=== PATIENT | female | born 1940 | race Caucasian/White ===

== ENCOUNTER → 2017-10-29 08:34 | Outpatient (CLI) | payer MEDICARE, SELFPAY ==
--- NOTE | 2017-10-29 09:00 | MM_ITS ---
MM Dig screening mamm BI w/CAD ORDERING PHYSICIAN : Tony Bhatti MD PATIENT: 77 years GENDER: Female COMPARISON: February 2008, February 2013 digital mammograms.: Also September 2005 film screen study INDICATION: ITS.REASON: SCREENING density female hormones. No complaints. No surgery. Family history: maternal grandmother and aunt with breast cancer. TECHNIQUE: Standard CC and MLO images were obtained. R2 CAD reviewed. FINDINGS: Moderate breast density bilaterally. Mild/ Moderate residual fibroglandular elements but there has been There is been progressive decreased density in the breasts bilaterally with compared to the previous studies from February 2008,. There is a more similar appearance when compared to 2012 but still with slight regression of fibroglandular elements. No dominant mass nor suspicious calcifications. Benign vascular calcifications are seen bilaterally. RIGHT BREAST:. No new areas of concern. A few scattered small benign appearing calcifications lateral right breast can be followed. LEFT BREAST:Stable left breast. No new findings. Small slightly nodular area of density at the lateral breast on cc view is unchanged 2012. Can be followed. Stable scant densities on MLO view as well can be followed IMPRESSION: No new findings of significant concern. Moderate breast density for age reflects hormone replacement therapy Bilateral follow-up in one year recommended BI-RADS Category: 2 Benign Finding(s) RECOMMENDED FOLLOW-UP: 1YR 1 YEAR FOLLOW-UP (A letter has been sent to the patient regarding results of the study.)
--- NOTE | 2017-10-29 09:30 | XR_ITS ---
XR DEXA axial skeleton HISTORY: ITS.REASON: OSTEOPENIA ORDERING PHYSICIAN: Tony Bhatti MD PATIENT AGE: 77 years COMPARISON: 02/17/2013 FINDINGS: The BMD measured at the left hip is 0.787 g/cm squared with a T score of -1.8. This is considered osteopenia according to the World Health Organization criteria. Fracture risk is moderate. Treatment is advised. L1-L4 density has a T score of 0.2. Spine density has increased by 2%. The left hip density has decreased by nearly 1%. IMPRESSION: Osteopenia with moderate fracture risk. Suggest treatment with follow-up exam October 2019
== END ==
PROVIDERS: Family Provider Family Medicine; PCP Family Medicine; Visit Provider Family Medicine
DX: Z12.31 Encounter for screening mammogram for malignant neoplasm of breast (principal); M85.89 Other specified disorders of bone density and structure, multiple sites
CPT/HCPCS: 77067; 77080

== ENCOUNTER → 2019-10-31 09:09 | Outpatient (CLI) | payer MEDICARE, SELFPAY ==
--- NOTE | 2019-10-31 09:14 | XR_ITS ---
PROCEDURE: XR DEXA AXIAL SKELETON CLINICAL HISTORY: OSTEOPENIA COMPARISON: CR DEXAAX XR DEXA axial skeleton from 10/29/2017 FINDINGS: The left forearm BMD is 0.636 with a t-score of -1.0. The left hip BMD is 0.672 with a t-score of -1.6. The lumbar spine BMD is 1.074 with a t-score of 0.2. Previously the lowest BMD was at the left hip at the femoral neck with a T-score of -1.8 IMPRESSION: This patient is considered osteopenic according to the World Health Organization criteria. Bone density is between 10 and 25 percent below young normal . Fracture risk is moderate. Treatment is advised. Based on these results of follow-up exam is recommended in 2 years Dictated by: Mateo Kelly MD 11/01/2019 09:03 Mateo Kelly MD in [place] 11/01/2019 09:03
--- NOTE | 2019-10-31 09:15 | MM_ITS ---
PROCEDURE: MM DIG SCREENING MAMM BI W/CAD Digital Breast Tomosynthesis Included CLINICAL INDICATION: SCREENING There is a history of breast cancer patient's maternal grandmother and maternal aunt. Patient currently is on estrogen. Patient has multiple moles on each breast too many to jenny all COMPARISON: MG MAMM-SCREENING DIRECT DIGITAL from 02/23/2008 MG DMSB DIG MAMM-SCREEN ELLIE from 02/17/2013 MG SCBI MM Dig screening mamm BI w/CAD from 10/29/2017 TECHNIQUE: Standard CC and MLO images and 3D Tomosynthesis was obtained. R2 CAD reviewed. FINDINGS: Prominent diffuse somewhat heterogenic fibroglandular densities are seen throughout both breasts and the findings are fairly symmetrical bilaterally. There is prominent arterial calcification in each breast. There are scattered benign-appearing microcalcifications in each breast. There are couple of mole markers on each breast. There is no new or suspicious lesion in either breast and no suspicious microcalcifications. IMPRESSION: Moderate breast density with no suspicious lesions seen BI-RAD Category: 2 Benign Finding(s) FOLLOW-UP: 1YR 1 Year Follow-up (A letter has been sent to the patient regarding results of the study.) Dictated by: Dr. Lito Delaney MD 11/02/2019 07:30 Dr. Lito Delaney MD in [place] 11/02/2019 07:30
== END ==
PROVIDERS: PCP Family Medicine; Visit Provider Family Medicine
DX: Z12.31 Encounter for screening mammogram for malignant neoplasm of breast (principal); M85.89 Other specified disorders of bone density and structure, multiple sites
CPT/HCPCS: 77063; 77067; 77080

== ENCOUNTER → 2020-01-03 10:42 | Outpatient (CLI) | payer MEDICARE, SELFPAY | PROVIDERS: PCP Family Medicine; Visit Provider Family Medicine | DX: Z03.818 Encounter for observation for suspected exposure to other biological agents ruled out (principal) | CPT/HCPCS: U0003 ==

== ENCOUNTER → 2020-07-05 10:29 | Outpatient (POV) | payer MEDICARE, SELFPAY | PROVIDERS: Visit Provider Audiologist | DX: Z00.00 Encounter for general adult medical examination without abnormal findings (principal) ==

== ENCOUNTER → 2020-09-07 09:21 | Outpatient (CLI) | payer MEDICARE, SELFPAY ==
[2020-09-07 09:26] LABS: Microscopic, Urine URINE MICROSCOPIC (MICROSCOPIC)
[2020-09-07 09:49] LABS: Basophils # 0.1 K/mm3 (0-0.2); Basophils % 0.9 % (0.1-2.0); Eosinophils # 0.9 K/mm3 (0.0-0.4); Hematocrit 34.8 % (37.0-47.0); Hemoglobin 11.5 g/dL (12.2-16.2); Lymphocytes # 1.7 K/mm3 (0.7-4.5); Lymphocytes % 19.8 % (10-50); Mean Corpuscular HGB Conc 33.1 g/dL (31.8-35.4); Mean Corpuscular Hemoglobin 30.2 pg (27.0-31.2); Mean Corpuscular Volume 91.2 fl (81-99); Mean Platelet Volume 9.2 fl (7.4-10.4); Monocytes # 0.4 K/mm3 (0.1-1.0); Monocytes % 4.7 % (1.7-9.3); Neutrophils # 5.6 K/mm3 (1.8-7.8); Neutrophils % 64.6 % (37.0-80.0); Platelet Count 203 K/mm3 (142-424); Red Blood Count 3.81 M/mm3 (4.20-5.40); Red Cell Distribution Width 13.4 % (11.5-17.5); White Blood Count 8.7 K/mm3 (4.8-10.8)
[2020-09-07 09:55] LABS: Creatinine,Urine Random 215 mg/dL (Not Estab.)
[2020-09-07 09:56] LABS: Appearance,Urine SL CLOUDY (Clear); Bilirubin,Urine Negative (Negative); Blood, Urine Negative (Negative); Color,Urine DK YELLOW (Yellow); Glucose,Urine (UA) Negative (Negative); Ketones,Urine Negative (Negative); Leukocyte Esterase,Urine Negative (Negative); Nitrate,Urine Negative (Negative); Protein,Urine Negative (Negative); Urobilinogen,Urine 0.2 EU/dl (0.2)
[2020-09-07 10:06] LABS: WBC,Urine Occasional #/hpf (0-3)
[2020-09-07 10:07] LABS: Bacteria,Urine Trace /lpf
[2020-09-07 10:09] LABS: Albumin Level 3.8 g/dl (3.5-5.0); Anion Gap 11.3 mEq/L (5-15); Blood Urea Nitrogen 19 mg/dl (7-17); Calcium 8.8 mg/dl (8.4-10.2); Carbon Dioxide 27 mmol/L (22.0-30.0); Chloride 103 mmol/L (98-107); Estimated Glomerular Filt Rate 43 ml/min (>60); GFR (African American) 52 ML/MIN (>60); Glucose 113 mg/dl (74-100); Phosphorous 3.6 mg/dl (2.5-4.5); Potassium 4.3 mmoL/L (3.5-5.1); Sodium 137 mmol/L (136-145)
[2020-09-07 10:20] LABS: Intact Parathyroid Hormone 48.4 pg/mL (7.5-53.5)
[2020-09-07 10:26] LABS: 25-OH Vitamin D, Total 67.5 ng/mL (30-100)
== END ==
PROVIDERS: Visit Provider Internal Medicine Nephrology
DX: N18.30 Chronic kidney disease, stage 3 unspecified (principal); E55.9 Vitamin D deficiency, unspecified
CPT/HCPCS: 36415; 80069; 81001; 82306; 82570; 83970; 84155; 85025

== ENCOUNTER → 2020-09-13 13:43 | Outpatient (POV) | payer MEDICARE, SELFPAY | PROVIDERS: Visit Provider Internal Medicine Nephrology | DX: Z00.00 Encounter for general adult medical examination without abnormal findings (principal) ==

== ENCOUNTER → 2021-03-19 11:10 | Outpatient (POV) | payer MEDICARE, SELFPAY | PROVIDERS: Visit Provider Dermatology | DX: Z00.00 Encounter for general adult medical examination without abnormal findings (principal) ==

== ENCOUNTER → 2021-04-15 10:38 | Outpatient (CLI) | payer MEDICARE, SELFPAY ==
[2021-04-15 10:50] LABS: Microscopic, Urine URINE MICROSCOPIC (MICROSCOPIC)
[2021-04-15 11:29] LABS: Hematocrit 37.1 % (37.0-47.0); Hemoglobin 11.7 g/dL (12.2-16.2); Mean Corpuscular HGB Conc 31.6 g/dL (31.8-35.4); Mean Corpuscular Hemoglobin 30.6 pg (27.0-31.2); Platelet Count 234 K/mm3 (142-424); Red Blood Count 3.82 M/mm3 (4.20-5.40); Red Cell Distribution Width 12.7 % (11.5-17.5); White Blood Count 10.3 K/mm3 (4.8-10.8)
[2021-04-15 11:47] LABS: Chloride 103 mmol/L (98-107)
[2021-04-15 11:48] LABS: Albumin Level 4.1 g/dl (3.5-5.0); Potassium 4.2 mmoL/L (3.5-5.1); Sodium 138 mmol/L (136-145)
[2021-04-15 11:50] LABS: Blood Urea Nitrogen 22 mg/dl (7-17); Estimated Glomerular Filt Rate 43 ml/min (>60); GFR (African American) 52 ML/MIN (>60)
[2021-04-15 11:51] LABS: Anion Gap 11.2 mEq/L (5-15); Calcium 9.2 mg/dl (8.4-10.2); Carbon Dioxide 28 mmol/L (22.0-30.0); Glucose 83 mg/dl (74-100); Phosphorous 4.1 mg/dl (2.5-4.5)
[2021-04-15 13:51] LABS: Appearance,Urine CLEAR (Clear); Bilirubin,Urine Negative (Negative); Blood, Urine Negative (Negative); Color,Urine YELLOW (Yellow); Glucose,Urine (UA) Negative (Negative); Ketones,Urine Negative (Negative); Leukocyte Esterase,Urine Negative (Negative); Nitrate,Urine Negative (Negative); PH,Urine 6.5 (5.0-8.5); Protein,Urine Negative (Negative); Urobilinogen,Urine 0.2 EU/dl (0.2)
[2021-04-15 14:00] LABS: Bacteria,Urine Trace /lpf; RBC,Urine Occasional #/hpf (0-3); WBC,Urine Occasional #/hpf (0-3)
[2021-04-15 19:40] LABS: Creatinine,Urine Random 148 mg/dL (Not Estab.); Total Protein,Urine Random < 5.0 mg/dL (0.0-12.0)
== END ==
PROVIDERS: PCP Family Medicine; Visit Provider Internal Medicine Nephrology
DX: N18.30 Chronic kidney disease, stage 3 unspecified (principal)
CPT/HCPCS: 36415; 80069; 81001; 82570; 84155; 85014; 85018; 85048; 85049

== ENCOUNTER → 2021-08-19 11:48 | Outpatient (CLI) | payer MEDICARE, SELFPAY ==
--- NOTE | 2021-08-19 11:54 | XR_ITS ---
FINAL REPORT CLINICAL HISTORY: ACUTE PAIN OF RIGHT SHOULDER. STRAIN OF RIGHT ROTATOR CUFF FINDINGS: RIGHT SHOULDER Two views demonstrate no acute fracture or dislocation. There is mild acromioclavicular and mild glenohumeral joint degenerative change. The visualized bony structures are well aligned. No soft tissue abnormality is seen. IMPRESSION: Degenerative change with no acute process. Reviewed, Interpreted and Dictated by Saqib Cantu III, MD Transcribed by Martha Cano Authenticated and . [facility]
== END ==
PROVIDERS: PCP Family Medicine; Visit Provider Family Medicine
DX: M25.511 Pain in right shoulder (principal); S46.011A Strain of muscle(s) and tendon(s) of the rotator cuff of right shoulder, initial encounter
CPT/HCPCS: 73030

== ENCOUNTER → 2021-10-15 09:55 | Outpatient (POV) | payer MEDICARE, SELFPAY | PROVIDERS: Visit Provider Dermatology | DX: Z00.00 Encounter for general adult medical examination without abnormal findings (principal) ==

== ENCOUNTER 2021-11-15 14:00 | Outpatient (RCR) | payer MEDICARE, SELFPAY ==
--- NOTE | 2021-09-19 09:04 | HMH.OTOPEV ---
OT Inpatient Evaluation Rehab OT Outpatient Eval Start: 09/19/21 08:50 Freq: Status: Active Protocol: Document 09/19/21 08:51 ROSABERNADINE (Rec: 09/19/21 09:04 VITALIY [id number]) Electronically Signed By Shira Nelson OT 09/19/21 08:51 Outpatient Therapy Subjective History Subjective History 81 year old female referred to skilled OP OT services for R shoulder pain. Patient had a recent fall back in June of 2021 after tripping up her stairs on the back porch and landing on her R shoulder. On 08/19/21, X-ray showed degenerative changes with no acute process. PCP provided steriods to ease the pain then referred patient to ortho. On 09/06/21, Patient received Kenalog and lidocaine HCI with pain improvements still today . However Patient continues to have pain in the R shoulder during AROM and exhibit weakness. 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 Chief Complaint Pain,Weakness Symptom Type Ache Symptoms Relieved By Ice,Prescription Meds Symptoms Aggravated By Physical Activity Prior Functional Limitations None Current Functional Limitations Reaching,Lifting,Recreation Activity Symptom Description Intermittent Level of pain today (0-10) 0 Pain scale - at its best (0-10) 0 Pain scale - at its worst (0-10) 3 Shoulder/Elbow Eval Shoulder Objective Measurements Shoulder ROM Right Shoulder Abduction Active Range of 140 Motion (degrees) Shoulder Flexion Active Range of Motion 160 (degrees) Query Text: Shoulder External Rotation Active Range 70 of Motion (degrees) Shoulder Internal Rotation Active Range 30 of Motion (degrees) pain with active ROM shoulder exam right standard Shoulder MMT Shoulder Abduction Strength Grade 3- Fair- Shoulder Extension Strength Grade 3- Fair- Shoulder Flexion Strength Grade 3- Fair- Shoulder Horizontal Abduction Strength 3- Fair- Grade Infraspinatus/Teres Minor Strength Grade 3- Fair- Shoulder External Rotation Strength 3- Fair- Grade Shoulder Internal Rotation Strength 3- Fair-
== END 2021-11-15 14:05 | disposition home or self-care (01) ==
LOC: OT 14:00
PROVIDERS: PCP Family Medicine; Visit Provider Orthopaedic Surgery
DX: M25.511 Pain in right shoulder (principal)
CPT/HCPCS: 97010; 97014; 97035; 97110; 97140; 97164; 97165; 97530; G0283

== ENCOUNTER → 2021-12-24 15:10 | Outpatient (POV) | payer MEDICARE, SELFPAY | PROVIDERS: Visit Provider Dermatology | DX: Z00.00 Encounter for general adult medical examination without abnormal findings (principal) ==

== ENCOUNTER → 2022-01-28 14:25 | Outpatient (POV) | payer MEDICARE, SELFPAY | PROVIDERS: Visit Provider Dermatology | DX: Z00.00 Encounter for general adult medical examination without abnormal findings (principal) ==

== ENCOUNTER → 2022-02-04 14:49 | Outpatient (POV) | payer MEDICARE, SELFPAY | PROVIDERS: Visit Provider Dermatology | DX: Z00.00 Encounter for general adult medical examination without abnormal findings (principal) ==

== ENCOUNTER → 2022-04-11 10:26 | Outpatient (CLI) | payer MEDICARE, SELFPAY ==
[2022-04-11 11:04] LABS: Microscopic, Urine URINE MICROSCOPIC (MICROSCOPIC)
--- NOTE | 2022-04-11 11:14 | XR_ITS ---
FINAL REPORT TECHNIQUE: 5 views CLINICAL HISTORY: BACK PAIN right sided lower back pain FINDINGS: There is no fracture present. There is no malalignment. There is moderate, diffuse degenerative disc disease, most pronounced at L2-3. There is mild facet arthropathy. IMPRESSION: Moderate degenerative change without acute bony abnormality. Reviewed, Interpreted and Dictated by Sayda Connelly MD Transcribed by Autumn Felix Authenticated and [facility]
[2022-04-11 11:28] LABS: Hematocrit 39.3 % (37.0-47.0); Hemoglobin 12.6 g/dL (12.2-16.2); Mean Corpuscular HGB Conc 32.1 g/dL (31.8-35.4); Mean Corpuscular Hemoglobin 31.2 pg (27.0-31.2); Mean Corpuscular Volume 97.5 fl (81-99); Platelet Count 339 K/mm3 (142-424); Red Blood Count 4.03 M/mm3 (4.20-5.40); Red Cell Distribution Width 12.9 % (11.5-17.5); White Blood Count 12.8 K/mm3 (4.8-10.8)
[2022-04-11 11:34] LABS: Appearance,Urine CLEAR (Clear); Bilirubin,Urine Negative (Negative); Blood, Urine Negative (Negative); Color,Urine YELLOW (Yellow); Glucose,Urine (UA) Negative (Negative); Ketones,Urine Negative (Negative); Leukocyte Esterase,Urine Negative (Negative); Nitrate,Urine Negative (Negative); Protein,Urine Negative (Negative); Specific Gravity, Urine 1.015 (1.005-1.030); Urobilinogen,Urine 0.2 EU/dl (0.2)
[2022-04-11 12:01] LABS: Creatinine,Urine Random 110 mg/dL (Not Estab.)
[2022-04-11 12:03] LABS: Squamous Epithelial Cell,Urine Occasional #/hpf (0-5); WBC,Urine Occasional #/hpf (0-3)
[2022-04-11 12:39] LABS: Albumin Level 3.7 g/dl (3.5-5.0); Anion Gap 8.9 mEq/L (5-15); Blood Urea Nitrogen 26 mg/dl (7-17); Calcium 9.1 mg/dl (8.4-10.2); Carbon Dioxide 33 mmol/L (22.0-30.0); Chloride 100 mmol/L (98-107); Estimated Glomerular Filt Rate 36 ml/min (>60); GFR (African American) 44 ML/MIN (>60); Glucose 111 mg/dl (74-100); Phosphorous 4.4 mg/dl (2.5-4.5); Potassium 4.9 mmoL/L (3.5-5.1); Sodium 137 mmol/L (136-145)
[2022-04-11 12:49] LABS: Intact Parathyroid Hormone 35.7 pg/mL (7.5-53.5)
[2022-04-11 12:53] LABS: 25-OH Vitamin D, Total 67.3 ng/mL (30-100)
== END ==
PROVIDERS: PCP Family Medicine; Visit Provider Internal Medicine Nephrology
DX: N18.31 Chronic kidney disease, stage 3a (principal); E83.9 Disorder of mineral metabolism, unspecified; M89.9 Disorder of bone, unspecified; M85.80 Other specified disorders of bone density and structure, unspecified site
CPT/HCPCS: 36415; 72110; 80069; 81001; 82306; 82570; 83970; 84155; 85014; 85018; 85048; 85049

== ENCOUNTER → 2022-04-17 12:32 | Outpatient (POV) | payer MEDICARE, SELFPAY | PROVIDERS: Visit Provider Internal Medicine Nephrology | DX: Z00.00 Encounter for general adult medical examination without abnormal findings (principal) ==

== ENCOUNTER → 2022-04-28 09:41 | Outpatient (CLI) | payer MEDICARE, SELFPAY ==
--- NOTE | 2022-04-28 09:46 | MR_ITS ---
FINAL REPORT TECHNIQUE: Multiplanar and multisequence imaging of the lumbar spine was obtained without contrast. CLINICAL HISTORY: ACUTE RIGHT SIDED LOW BACK PAIN. RIGHT LEG PAIN, NUMBNESS, AND TINGLING. NO INJURY OR TRAUMA. SYMPTOMS [id number]. FINDINGS: There is normal alignment of the lumbar vertebral bodies. Vertebral body height is preserved. The spinal cord ends at the level of L1. There is normal signal intensity within the substance of the distal spinal cord. Bone marrow signal intensity is normal. No acute paraspinal abnormality is identified. L1-2: There is no focal disc herniation, central canal stenosis or neuroforaminal narrowing. L2-3: Annular disc bulge is present bilateral facet osteoarthropathy. There is mild central canal stenosis and left greater than right neuroforaminal narrowing. L3-4: Annular disc bulge is present, asymmetric to the left with mild facet osteoarthropathy. There is no central canal stenosis. There is mild left neuroforaminal narrowing. L4-5: There is a right paracentral extrusion. Disc material a sense along the posterior aspect of the L4 vertebral body. There is moderate to severe central canal stenosis asymmetric to the right. Disc material likely contacts the right L5 nerve root and right L4 nerve root. There is severe right and mild left neuroforaminal narrowing. L5-S1: There is no focal disc herniation, central canal stenosis. There is bilateral facet osteoarthritis apathy with right greater than left mild neuroforaminal narrowing. IMPRESSION: 1. Right paracentral extrusion at L4-5 which likely contacts both the right L4 and right L5 nerve roots. 2. Degenerative disease at the additional levels as detailed. Reviewed, Interpreted and Dictated by Cheyenne Wood MD Transcribed by Basia Zarate Authenticated and [facility]
== END ==
PROVIDERS: PCP Family Medicine; Visit Provider Family Medicine
DX: M54.50 Low back pain, unspecified (principal); M51.9 Unspecified thoracic, thoracolumbar and lumbosacral intervertebral disc disorder; M47.816 Spondylosis without myelopathy or radiculopathy, lumbar region
CPT/HCPCS: 72148; 76376

== ENCOUNTER → 2022-05-19 14:21 | Outpatient (POV) | payer MEDICARE, SELFPAY ==
[2022-05-19 14:28] VITALS: BP 130/69; PULSE 93; RESP 19; O2SAT 97; BMI 27.4
--- NOTE | 2022-05-19 15:05 | EXP.PAIN.OV ---
HPI Data of Consult Patient: new to practice Consult date: 05/19/22 Requesting Physician: Marina Aleman APRN Primary Care Provider: Tony Bhatti MD Consult Narrative Reason for consult: Low back pain, right leg pain History of present illness: Ms. Nichole is a 81 year old female who presents today as a new patient. She is a referral from Dr. Bhatti's office. Today she rates her pain a 0 out of 10. Patient states that in March she bent down and had a sharp shooting pain in her low back that radiated down her right leg. Patient states this went on for approximately 6 weeks and cause significant pain. Patient states she was unable to tolerate prolonged activity such as standing or walking due to the pain. She stated that she had frequent trouble doing activities of daily living such as cooking and cleaning due to the worsening pain symptoms. Patient was prescribed gabapentin 100 mg twice a day and tramadol 50 mg as needed. Patient states that this did help improve her symptoms. She does state that she also uses Tylenol as needed. Patient cannot tolerate NSAIDs due to a interaction with another medication she takes on a regular basis. Patient does use heat and ice to provide additional relief as well as still continuing to go to physical therapy. She does state that they have been doing a lot of traction activities which have seemed to help. She does state that she feels like her gait has changed following this episode. 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 Patient does have a history of shoulder injections by Dr. Ruano. She does state this provides significant improvement of her symptoms. 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 Her Diogenes is [phone]. Its been reviewed and appropriate. CC: Marina Aleman APRN [facility] Disclaimer: The information contained in this section may have been updated after the patient was seen, as this information can be updated by other users. Medical History (Updated 05/19/22 @ 15:07 by Marina Aleman APRN) Arthritis HLD (hyperlipidemia) HTN (hypertension) Surgical History (Updated 05/19/22 @ 14:51 by Meghan Mansfield RN) H/O tubal ligation History of total right hip replacement Social History (Updated 05/19/22 @ 14:52 by Meghan Mansfield RN) Smoking Status: Never smoker alcohol intake: never current occupational status: employed Travel in the last 8 weeks: None Review of Systems Review of Systems Review of systems:: pertinent systems reviewed and negative unless documented below Review of systems (narrative): Review of Systems: General: No recent weight changes, no fever, no sleep disturbances Respiratory: No cough, no shortness of air, no recurring pulmonary infections Cardiovascular/peripheral vascular: No chest pain, no palpitations, no edema, no shortness of breath Gastrointestinal: No new onset incontinence, normal bowel movements reported Genitourinary: No new onset incontinence Musculoskeletal: Low back pain, right leg pain Psychiatric: [Normal mood/affect] Neurological: [Denies weakness in extremities], [denies balance issues] Meds Home Medications and Allergies Home Medications Medication Instructions Recorded Confirmed Type alendronate 35 mg tablet mg PO 04/21/19 04/25/22 History aspirin 81 mg tablet,delayed 81 mg PO DAILY 04/21/19 04/25/22 History release (Adult Aspirin Regimen) estradiol 1 mg tablet 1 mg PO 04/21/19 04/25/22 History medroxyprogesterone 2.5 mg tablet 2.5 mg PO 04/21/19 04/25/22 History metoprolol succinate 50 mg PO 04/21/19 04/25/22 History tablet,extended release 24 hr rosuvastatin 40 mg tablet 40 mg PO 04/21/19 04/25/22 History irbesartan 300 mg tablet 300 mg PO DAILY 09/06/21 04/25/22 History New Prescriptions to Start Prescriptions: Allergies Allergy/AdvReac Type Eloisa
== END ==
PROVIDERS: PCP Family Medicine; Visit Provider Nurse Practitioner Family
DX: M51.16 Intervertebral disc disorders with radiculopathy, lumbar region (principal); M79.604 Pain in right leg; M48.061 Spinal stenosis, lumbar region without neurogenic claudication; M47.26 Other spondylosis with radiculopathy, lumbar region
CPT/HCPCS: 99202; G0463

== ENCOUNTER 2022-05-29 09:00 | Outpatient (RCR) | payer MEDICARE, SELFPAY ==
--- NOTE | 2022-05-08 14:19 | HMH.PTOPEV ---
PT Outpatient Evaluation Rehab PT Outpatient Evaluation Start: 05/08/22 13:30 Freq: Status: Active Protocol: Document 05/08/22 13:30 CARIE (Rec: 05/08/22 14:19 CARIE [id number]) E-signed By Xiang Gonzales, PT Outpatient Therapy Subjective History Subjective History Pt reports mechanical LBP since bending injury on while doing laundry at home . Pt reports LBP progressed a couple days after the incident with right LE radicular s/s from hip to ankle with pain, tightness, and weakness. Pt reports current medicine regimen prevents all LBP and RLE pain, however, reports right ankle (DF) and R LE weakness continues. MRI scheduled for 05/13/22. Chief Complaint Pain,Stiff,Paresthesia, Weakness Symptom Type Ache,Throb,Dull,Stabbing Symptoms Relieved By Rest/Positioning,Prescription Meds Symptoms Aggravated By Bending/Stooping,Physical Activity,Walking,Lifting Prior Functional Limitations None Current Functional Limitations Lifting,Housework,Standing, Walking,Bending/Stooping Symptom Description Intermittent Level of pain today (0-10) 0 Pain scale - at its best (0-10) 0 Pain scale - at its worst (0-10) 8 Lumbopelvic Eval Posture Thoracic Spine Posture Standing Position Neutral Lumbar Spine Posture Standing Position Neutral Assistive device Assistive Devices None / NA Gait Observation General Gait Pattern Observation Ataxic Gait Palapation tenderness right lumbar spinal tenderness Yes: 3/4 paraspinal tenderness Yes: 3/4 buttock tenderness Yes: 3/4 Lumbar/Sacral Palpation Findings Tenderness,Trigger Point, Muscle Guarding Accessory Movement L-spine Vertebrae Accessory Movements Central [employer] [place] that Elicit Symptoms L4 right L5 right Range of Motion Lumbar Spine Active Flexion Range of 0-60 Motion (degrees) Lumbar Spine Active Extension Range of 0-20 Motion (degrees) Left Lumbar Spine Lateral Flexion Active 0-20 Range of Motion (degrees) Right Lumbar Spine Lateral Flexion 0-20 Active Range of Motion (degrees) Lumbar Spine ROM Limitations Pain Manual Muscle Test Left Knee Extension Strength Grade 5 Norm
== END 2022-05-29 09:05 | disposition home or self-care (01) ==
LOC: PT 09:00
PROVIDERS: PCP Family Medicine; Visit Provider Family Medicine
DX: M47.816 Spondylosis without myelopathy or radiculopathy, lumbar region (principal); M51.26 Other intervertebral disc displacement, lumbar region; M51.9 Unspecified thoracic, thoracolumbar and lumbosacral intervertebral disc disorder; M54.41 Lumbago with sciatica, right side
CPT/HCPCS: 97010; 97012; 97014; 97110; 97163; 97530; G0283

== ENCOUNTER → 2022-09-01 13:29 | Outpatient (POV) | payer MEDICARE, SELFPAY ==
--- NOTE | 2022-09-01 14:14 | EXP.PAIN.SOA ---
[facility] Pain Management SOAP Note Subjective:: Patient is a pleasant 82-year-old female who presents today for follow-up. We are currently treating the patient for degenerative disc disease of lumbar spine with lumbar radiculopathy symptoms, low back pain, right leg pain, spinal stenosis lumbar spine. Today she rates her pain a 7 out of 10. Patient states her pain is all in her left shoulder. Patient denies any recent trauma or injury. She states this pain has been going on for years and progressively worsened over time. Patient states she has been seeing Dr. Ruano who is done intra-articular injections at this site along with her right shoulder. Patient states that she still is getting good relief in the right however her last injection in the left only lasted approximately 3 weeks. She also states that Dr. Ruano mention that she may need a shoulder replacement in the upcoming future. Patient states that she is trying to do all she can to postpone surgery at this time. Patient does describe this pain as a constant dull ache that is worse with increased activity. Patient states it does interfere with her ability perform activities of daily living such as cooking and cleaning and she has very limited range of motion with difficulty raising her shoulder. She does state that in the past she had been given gabapentin 100 mg twice a day and tramadol 50 mg as needed and she does still have a little of this medication. Patient does state that she has altered kidney function and was diagnosed with stage III kidney disease for the last 3 years. She states it has maintained at this level and not had any progression at this time. Patient does use heat and ice and is also seeing physical therapy. Patient does still work at [employer] a couple of days through the week. Her Diogenes is [phone]. Its been reviewed and appropriate. Review of Systems: General: No recent weight changes, no fever, no sleep disturbances Respiratory: No cough, no shortness of air, no recurring pulmonary infections Cardiovascular/peripheral vascular: No chest pain, no palpitations, no edema, no shortness of breath Gastrointestinal: No new onset incontinence, normal bowel movements reported Genitourinary: No new onset incontinence Musculoskeletal: Left shoulder pain Psychiatric: [Normal mood/affect] Neurological: [Denies weakness in extremities], [denies balance issues] Objective:: Physical Exam: General: Alert and oriented x3, no acute distress, pleasant and cooperative Lungs: Respirations even and unlabored, symmetrical chest expansion Eyes: PERRL Musculoskeletal: Flexion and extension of left shoulder somewhat guarded secondary to pain, Neurological: Speech clear, no gross sensory deficit Assessment:: Degenerative disc disease of lumbar spine with lumbar radiculopathy symptoms, low back pain, right leg pain, spinal stenosis of the lumbar spine, left shoulder pain Plan:: Patient is experiencing worsening pain in her left shoulder with limited range of motion. I have discussed with the patient that she may benefit from a left shoulder suprascapular nerve block. Risk and benefits were discussed with the patient and she would like to proceed forward with this plan of care. I will also order the patient tizanidine 4 mg at bedtime and methocarbamol 500 mg twice daily and provide a 1 month supply of these medications. I have counseled the patient to take the tizanidine at bedtime to help with her sleeping and that the methocarbamol is generally less sedating through the day. Patient will be scheduled for a left shoulder suprascapular nerve block. Patient has been instructed to contact the clinic with any concerns before the next appointment. Dr. Patel has reviewed this note and agrees with this plan of care. This note was dictated using voice recognition software and make contain errors or omissions. [facility] Disclaimer: The information contained in this section may have been updated aft
[2022-09-01 15:44] VITALS: BP 146/76; PULSE 83; RESP 18; O2SAT 97; BMI 26.2
== END | disposition home or self-care (01) ==
PROVIDERS: PCP Family Medicine; Visit Provider Nurse Practitioner Family
DX: M51.16 Intervertebral disc disorders with radiculopathy, lumbar region (principal); M48.061 Spinal stenosis, lumbar region without neurogenic claudication; M79.604 Pain in right leg; M25.512 Pain in left shoulder
CPT/HCPCS: 99212; G0463

== ENCOUNTER 2022-09-09 13:45 | Day surgery (SDC) | payer MEDICARE, SELFPAY ==
[2022-09-09 14:00] VITALS: BP 177/78; PULSE 80; RESP 16; TEMP 36.4; O2SAT 100; BMI 27.4
[2022-09-09 14:27] VITALS: BP 123/78; PULSE 75; RESP 18; O2SAT 97
[2022-09-09 14:29] VITALS: BP 123/78; PULSE 75; RESP 18; O2SAT 98
--- NOTE | 2022-09-09 14:35 | P.PCN_ITS ---
Procedure Date: 09/09/22 Time: 14:35 Anesthesiologist:: Hans Cherry CRNA Complications:: None Pre-procedure Diagnosis:: Chronic left shoulder pain. Degenerative osteoarthritis left shoulder Post-procedure Diagnosis:: Same. Indications for Procedure:: Patient presents to our clinic today 82-year-old female for left suprascapular nerve block. Patient has had multiple left shoulder intra-articular injections of cortisone. Patient states the injections into the shoulder joint have helped in the past. However the last couple she has had did not last very long. Patient complains of chronic left shoulder pain. Difficulty with range of motion due to pain in the shoulder joint. She rates her pain 7/10. Procedure Details:: Details of the procedure explained to the patient. The patient taken the procedure room placed in sitting position. The area over the left scapula was cleansed using chlorhexidine as a cleansing solution. Using a 25-gauge inch and half needle and a solution of 0.25% Marcaine +1% lidocaine and 40 mg of Depo- Medrol 3 separate areas on the superior lateral border of the left scapula was injected. 3 to 4 cc at each area. Patient tolerated the procedure without difficulty. There are no complications. Plan and Disposition:: Patient was discharged without incident.
[2022-09-09 14:46] VITALS: BP 148/74; PULSE 71; RESP 18; O2SAT 99
== END 2022-09-09 14:46 | disposition home or self-care (01) ==
PROVIDERS: PCP Family Medicine; Visit Provider Nurse Anesthetist, Certified Registered
DX: M19.012 Primary osteoarthritis, left shoulder (principal); M25.512 Pain in left shoulder; G89.29 Other chronic pain
CPT/HCPCS: 20610; J1040

== ENCOUNTER → 2022-09-24 14:40 | Outpatient (POV) | payer MEDICARE, SELFPAY ==
--- NOTE | 2022-09-24 14:52 | EXP.PAIN.SOA ---
[facility] Pain Management SOAP Note Subjective:: Patient is a pleasant 82-year-old female who presents today for follow-up of left intra-articular shoulder injection on 09/09/2022. We are currently treating the patient for degenerative disc disease of lumbar spine with lumbar radiculopathy symptoms, low back pain, right leg pain, spinal stenosis lumbar spine. Today she rates her pain a 5 out of 10. She does state that the injection did provide approximately approximately 50% improvement and is still currently helping. She does state that she still has continued pain in that left shoulder and will have trouble with certain range of motion exercises however it is much more tolerable. She states she has been able to increase her activity with decreased pain and does overall know that she is only able to do certain activities. At our last visit we did prescribe her methocarbamol 500 mg twice a day and tizanidine 4 mg at bedtime. She does state that this medication combination did provide significant improvem she does have a history of stage III kidney disease for the last 3 years. Review of Systems: General: No recent weight changes, no fever, no sleep disturbances Respiratory: No cough, no shortness of air, no recurring pulmonary infections Cardiovascular/peripheral vascular: No chest pain, no palpitations, no edema, no shortness of breath Gastrointestinal: No new onset incontinence, normal bowel movements reported Genitourinary: No new onset incontinence Musculoskeletal: Left shoulder pain Psychiatric: [Normal mood/affect] Neurological: [Denies weakness in extremities], [denies balance issues] Objective:: Physical Exam: General: Alert and oriented x3, no acute distress, pleasant and cooperative Lungs: Respirations even and unlabored, symmetrical chest expansion Eyes: PERRL Musculoskeletal: Flexion and extension of left shoulder somewhat guarded secondary to pain, [antalgic gait noted] Neurological: Speech clear, no gross sensory deficit Assessment:: Degenerative disc disease of lumbar spine with lumbar radiculopathy symptoms, low back pain, right leg pain, spinal stenosis of lumbar spine, left shoulder pain Plan:: Patient has had significant improvement of her pain symptoms following her intra-articular shoulder injection along with the muscle relaxers and does not require any additional injective therapy at this time. I will refill the patient's methocarbamol 500 mg twice daily and tizanidine 4 mg at bedtime and provide a 1 month supply of this medication. I will also order compounding cream. Patient will return to clinic in 1 month for reevaluation of symptoms, medication refill and plan of care. Patient has been instructed to contact the clinic with any concerns before the next appointment. Dr. Patel has reviewed this note and agrees with this plan of care. This note was dictated using voice recognition software and make contain errors or omissions. [facility] Disclaimer: The information contained in this section may have been updated after the patient was seen, as this information can be updated by other users. Medical History Arthritis HLD (hyperlipidemia) HTN (hypertension) Surgical History H/O tubal ligation History of total right hip replacement Social History Smoking Status: Never smoker alcohol intake: never current occupational status: retired Travel in the last 8 weeks: None
[2022-09-24 15:11] VITALS: BP 134/63; PULSE 78; RESP 18; O2SAT 96; BMI 28.3
== END | disposition home or self-care (01) ==
PROVIDERS: PCP Family Medicine; Visit Provider Nurse Practitioner Family
DX: M51.16 Intervertebral disc disorders with radiculopathy, lumbar region (principal); M79.604 Pain in right leg; M48.061 Spinal stenosis, lumbar region without neurogenic claudication; M25.512 Pain in left shoulder
CPT/HCPCS: 99212; G0463

== ENCOUNTER → 2022-10-23 08:39 | Outpatient (POV) | payer MEDICARE, SELFPAY ==
[2022-10-23 08:57] VITALS: BP 115/55; PULSE 100; RESP 18; O2SAT 97; BMI 26.5
--- NOTE | 2022-10-23 08:59 | EXP.PAIN.SOA ---
[facility] Pain Management SOAP Note Subjective:: Patient is a pleasant 82-year-old female who presents today for follow-up. We are currently treating the patient for degenerative disc disease of lumbar spine with lumbar radiculopathy symptoms, low back pain, right leg pain, spinal stenosis of lumbar spine, left shoulder pain. Today she rates her pain a 5 out of 10. Patient denies any new trauma or injury. She states she continues to have more shoulder pain. She did previously have a left intra-articular shoulder injection at the end of August that did provide at least 50% improvement lasting over a month however she states over the last couple of weeks it has progressively worsened. Patient does describe it as a aching, nagging sensation that is worse with increased activity. She states it makes it difficult to do activities of daily living such as cooking or cleaning or even simple task of washing her hair. Patient does use her compounding cream and states this helps some along with her methocarbamol 500 mg twice a day and tizanidine 4 mg at bedtime. She does state that that even last night she had difficulty falling asleep with the medication. Her Diogenes is [id number]. Its been reviewed and appropriate. Review of Systems: General: No recent weight changes, no fever, no sleep disturbances Respiratory: No cough, no shortness of air, no recurring pulmonary infections Cardiovascular/peripheral vascular: No chest pain, no palpitations, no edema, no shortness of breath Gastrointestinal: No new onset incontinence, normal bowel movements reported Genitourinary: No new onset incontinence Musculoskeletal: Left shoulder pain Psychiatric: [Normal mood/affect] Neurological: [Denies weakness in extremities], [denies balance issues] Objective:: Physical Exam: General: Alert and oriented x3, no acute distress, pleasant and cooperative Lungs: Respirations even and unlabored, symmetrical chest expansion Eyes: PERRL Musculoskeletal: Flexion and extension of left shoulder somewhat guarded secondary to pain, [antalgic gait noted] Neurological: Speech clear, no gross sensory deficit Assessment:: Degenerative disc disease of lumbar spine with lumbar radiculopathy symptoms, low back pain, right leg pain, spinal stenosis of lumbar spine, left shoulder pain Plan:: Patient is experiencing worsening pain in her left shoulder with limited range of motion. I have discussed with the patient that she may benefit from a repeat left shoulder intra-articular injection. Risk and benefits were discussed with the patient and she would like to proceed forward with this plan of care. I will also order an MRI without contrast of her left shoulder to rule out any possible tear. I will refill the patient's methocarbamol 500 mg twice a day and tizanidine 4 mg at bedtime and provide a 1 month supply of this medication. Patient will be scheduled for a left intra-articular shoulder injection. Patient has been instructed to contact the clinic with any concerns before the next appointment. Dr. Patel has reviewed this note and agrees with this plan of care. This note was dictated using voice recognition software and make contain errors or omissions. [facility] Disclaimer: The information contained in this section may have been updated after the patient was seen, as this information can be updated by other users. Medical History Arthritis HLD (hyperlipidemia) HTN (hypertension) Surgical History H/O tubal ligation History of total right hip replacement Social History Smoking Status: Never smoker alcohol intake: never current occupational status: employed Travel in the last 8 weeks: None
== END | disposition home or self-care (01) ==
PROVIDERS: Visit Provider Nurse Practitioner Family
DX: M51.16 Intervertebral disc disorders with radiculopathy, lumbar region (principal); M48.061 Spinal stenosis, lumbar region without neurogenic claudication; M79.604 Pain in right leg; M25.512 Pain in left shoulder
CPT/HCPCS: 99212; G0463

== ENCOUNTER → 2022-10-27 06:53 | Outpatient (CLI) | payer MEDICARE, SELFPAY ==
--- NOTE | 2022-10-27 07:34 | MR_ITS ---
FINAL REPORT CLINICAL HISTORY: LEFT SHOULDER PAIN. limited rom and weakness in arm. no injury or trauma. COMPARISON: None FINDINGS: Multiplanar MR imaging of the left shoulder was performed without contrast. Diffuse supraspinatus and infraspinatus tendinosis. Partial-tear bursal surface supraspinatus tendon greater than 50% thickness. Probable calcification distal supraspinatus tendon worrisome for calcific tendinitis. The AC joint is intact. No abnormal fluid is seen in the subacromial/subdeltoid bursa. Diffuse labral degeneration. No convincing tear. Partial tear proximal long head biceps tendon. 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 A large glenohumeral joint effusion is seen. Loose body inferior glenohumeral joint measuring 15 mm. There is no evidence of fracture or dislocation. Multiple subchondral cysts in the humeral head. The musculature is intact. No evidence of soft tissue mass. IMPRESSION: Partial tear supraspinatus tendon. Findings worrisome for calcific tendinitis. Tendinosis. Labral degeneration without convincing tear. Large glenohumeral joint effusion. 15 mm loose body inferior glenohumeral joint. Reviewed, Interpreted and Dictated by Saqib Cantu III, MD Transcribed by Martha Cano Authenticated and [facility]
== END ==
PROVIDERS: PCP Family Medicine; Visit Provider Nurse Practitioner Family
DX: M25.512 Pain in left shoulder (principal)
CPT/HCPCS: 73221

== ENCOUNTER 2022-11-04 08:05 | Day surgery (SDC) | payer MEDICARE, SELFPAY ==
[2022-11-04 08:15] VITALS: BP 155/70; PULSE 91; RESP 18; TEMP 36.7; O2SAT 98; BMI 26.5
[2022-11-04 08:57] VITALS: BP 146/84; PULSE 89; RESP 18; O2SAT 97
--- NOTE | 2022-11-04 09:01 | P.PCN_ITS ---
Procedure Date: 11/04/22 Time: 08:40 Anesthesiologist:: Hans Cherry CRNA Complications:: None Pre-procedure Diagnosis:: Arthritis right shoulder. Supraspinatus partial tear left shoulder. Glenohumeral effusion left shoulder. Post-procedure Diagnosis:: Same. Indications for Procedure:: Very pleasant 82-year-old female that comes to clinic today for left intra- articular shoulder injection. I discussed in detail with the patient regarding the injection plus the benefits of physical therapy for the left shoulder supraspinatus tear. Patient agrees. We will set this up for her today. She rates her pain 7/10. Patient has good strength 5/5 in the left arm. However, range of motion is limited secondary to pain in the left shoulder joint. Procedure Details:: Procedure Details: Left shoulder intra-articular injection Informed consent was obtained risk and benefits of the procedure were explained to the patient. Patient was taken to the procedure room. The left shoulder was prepped using ChloraPrep. A 25-gauge needle was used first anteriorly, laterally, and then posteriorly to inject 10 mL bupivacaine 0.25% and Depo- Medrol 40 mg. Patient tolerated procedure well with no complications. Plan and Disposition:: Patient was discharged without incident
[2022-11-04 09:03] VITALS: BP 146/84; PULSE 89; RESP 18; O2SAT 97
[2022-11-04 09:07] VITALS: BP 150/81; PULSE 80; RESP 18; O2SAT 98
== END 2022-11-04 09:07 | disposition home or self-care (01) ==
PROVIDERS: PCP Family Medicine; Visit Provider Nurse Anesthetist, Certified Registered
DX: S46.012D Strain of muscle(s) and tendon(s) of the rotator cuff of left shoulder, subsequent encounter; M25.412 Effusion, left shoulder
CPT/HCPCS: 20610; J1040

== ENCOUNTER → 2022-11-27 10:12 | Outpatient (POV) | payer MEDICARE, SELFPAY ==
--- NOTE | 2022-11-27 11:34 | EXP.PAIN.SOA ---
[facility] Pain Management SOAP Note Subjective:: Patient is a pleasant 82-year-old female who presents today for follow-up of left intra-articular shoulder injection on 11/04/2022. We are currently treating the patient for degenerative disc disease of lumbar spine with lumbar radiculopathy symptoms, low back pain, right leg pain, spinal stenosis of lumbar spine, left shoulder pain. Today she rates her pain an 8 out of 10. Patient denies any new trauma or injury. She states she had at least 50% improvement following this injection and it is still continuing to provide additional relief longer than her first injection. Patient does state that she has been going to physical therapy and and having increased pain in her left upper arm. Patient does state that it still radiates down and at the visit with the physical therapist they were suggesting that she see orthopedics. Patient does state that she has no interest in having surgery at this time. Patient is currently managed with compounding cream, methocarbamol 500 mg twice a day and tizanidine 4 mg at bedtime. Patient denies any side effects from these medications. She does state that these medications do help manage her pain symptoms. Her Diogenes is [id number]. Its been reviewed and appropriate. Review of Systems: General: No recent weight changes, no fever, no sleep disturbances Respiratory: No cough, no shortness of air, no recurring pulmonary infections Cardiovascular/peripheral vascular: No chest pain, no palpitations, no edema, no shortness of breath Gastrointestinal: No new onset incontinence, normal bowel movements reported Genitourinary: No new onset incontinence Musculoskeletal: Left shoulder pain Psychiatric: [Normal mood/affect] Neurological: [Denies weakness in extremities], [denies balance issues] Objective:: Physical Exam: General: Alert and oriented x3, no acute distress, pleasant and cooperative Lungs: Respirations even and unlabored, symmetrical chest expansion Eyes: PERRL Musculoskeletal: Flexion and extension of left shoulder somewhat guarded secondary to pain, [antalgic gait noted] Neurological: Speech clear, no gross sensory deficit FINAL REPORT CLINICAL HISTORY: LEFT SHOULDER PAIN. limited rom and weakness in arm. no injury or trauma. COMPARISON: None FINDINGS: Multiplanar MR imaging of the left shoulder was performed without contrast. Diffuse supraspinatus and infraspinatus tendinosis. Partial-tear bursal surface supraspinatus tendon greater than 50% thickness. Probable calcification distal supraspinatus tendon worrisome for calcific tendinitis. The AC joint is intact. No abnormal fluid is seen in the subacromial/subdeltoid bursa. Diffuse labral degeneration. No convincing tear. Partial tear proximal long head biceps tendon. 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 A large glenohumeral joint effusion is seen. Loose body inferior glenohumeral joint measuring 15 mm. There is no evidence of fracture or dislocation. Multiple subchondral cysts in the humeral head. The musculature is intact. No evidence of soft tissue mass. IMPRESSION: Partial tear supraspinatus tendon. Findings worrisome for calcific tendinitis. Tendinosis. Labral degeneration without convincing tear. Large glenohumeral joint effusion. 15 mm loose body inferior glenohumeral joint. Reviewed, Interpreted and Dictated by Saqib Cantu III, MD Transcribed by Martha Cano Assessment:: Degenerative disc disease of lumbar spine with lumbar radiculopathy symptoms, low back pain, right leg pain, spinal stenosis of lumbar spine, left shoulder pain Plan:: Patient continues to experience pain in her left shoulder with limited range of motion. I will send a referral to orthopedic Dr. Shaggy Fuller for evaluation. We will send on her shoulder MRI. I will refill the patient's methocarbamol 500 mg twice a day and tizanidine 4 mg at bedtime and provide a 3-krystle
[2022-11-27 12:15] VITALS: BP 158/70; PULSE 83; RESP 18; O2SAT 97; BMI 26.5
== END | disposition home or self-care (01) ==
PROVIDERS: PCP Family Medicine; Visit Provider Nurse Practitioner Family
DX: M51.16 Intervertebral disc disorders with radiculopathy, lumbar region (principal); M79.604 Pain in right leg; M48.061 Spinal stenosis, lumbar region without neurogenic claudication; M25.512 Pain in left shoulder
CPT/HCPCS: 99212; G0463

== ENCOUNTER 2022-12-15 08:00 | Outpatient (RCR) | payer MEDICARE, SELFPAY ==
--- NOTE | 2022-11-06 10:51 | HMH.PTOPEV ---
PT Outpatient Evaluation Rehab PT Outpatient Evaluation Start: 11/06/22 07:40 Freq: Status: Active Protocol: Document 11/06/22 07:42 TREE (Rec: 11/06/22 10:50 TREE [id number]) E-signed By Marina Lewis, PT Outpatient Therapy Subjective History Subjective History Pt is an 82 y/o female who reports insidious onset of L shoulder pain since last fall. Pt reports gradual worsening of pain so she saw Dr. Ruano and received multiple injections in the shoulder. Pt reports the injections helped initially but started to wear off so she was referred to pain management. Pt reports she has received 2 rounds of 3 injections at pain management with the last one performed on Thursday. Pt reports before the most recent injection she was hardly able to move the left shoulder but she is able to lift it to shoulder height now. Pt reports she is also taking Methocarbam 500 mg and Tizanidine 4mg and using a compound cream. Pt reporst she took a pain pill this morning . Pt had a left shoulder MRI performed at [facility] on 10/27/22 Partial tear supraspinatus tendon. Findings worrisome for calcific tendinitis. Tendinosis. Labral degeneration without convincing tear. Large glenohumeral joint effusion. 15 mm loose body inferior glenohumeral joint. Partial tear proximal long head biceps tendon. 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 Pt reports she was told she was not a candidate for surgery and was referred to PT. Pt reports she continues to have pain/ difficulty w
--- NOTE | 2022-12-04 10:10 | HMH.RHREAS ---
Rehab Reassessment Rehab OP Re-assessment Start: 11/06/22 07:40 Freq: Status: Active Protocol: Document 12/04/22 07:55 TREE (Rec: 12/04/22 10:09 TREE [id number]) E-signed By Marina Lewis PT Rehab Re-assessment Subjective Subjective Pt reports she felt like she was improving a little until last session. Pt reports she had a catching sensation upon lowering the arm while performing supine AAROM flexion with a dowel resulting in sharp pain of the front of the shoulder. Pt reports since then she has been getting intermittent sharp, shooting pains in the front of the shoulder rated 10/10. Pt reports this is brief in nature and only lasts a few minutes. Pt reports she is waiting on pain management to refer her to an orthopedic doctor at this time. Objective Objective Notes L shoulder TTP: 3/4 at greater tuberosity, proximal bicep tendon, midshaft of the humrus L shoulder AROM in supine: flex 140, abd 90, ER at 45 degrees 55, IR at 45 degrees 70 (pain at end range elevation and ER with catching sensation upon lowering) L shoulder PROM in supine: flex 160, abd 120 then onset of pain, noted crepitus throughout the motion L shoulder MMT: flexion 4-/5, abd 4-/5, ER 4/5, IR 4/5 Assessment Progress Assessment Slower Than Expected Assessment Notes Pt has attended 7 PT visits consisting of shoulder P/AAROM exercises, gentle isometric shoulder strengthening, scapular strengthening, manual therapy and modalities with fair-good tolerance. Pt demonstrates slightly improved flexion and ER AROM in supine since the initial evaluation. St
== END 2022-12-15 08:05 | disposition home or self-care (01) ==
LOC: PT 08:00
PROVIDERS: PCP Family Medicine; Visit Provider Nurse Practitioner Family
DX: M25.512 Pain in left shoulder (principal)
CPT/HCPCS: 97010; 97014; 97035; 97110; 97140; 97163; 97164; G0283

== ENCOUNTER 2023-04-27 12:53 | Outpatient (POV) | payer MEDICARE, SELFPAY ==
[2023-04-27 13:47] LABS: Microscopic, Urine URINE MICROSCOPIC (MICROSCOPIC)
[2023-04-27 14:26] LABS: Basophils % 0.4 % (0.1-2.0); Eosinophils # 0.5 K/mm3 (0.0-0.4); Eosinophils % 4.6 % (0.1-12.0); Hematocrit 37.5 % (37.0-47.0); Hemoglobin 12.1 g/dL (12.2-16.2); Lymphocytes # 2.3 K/mm3 (0.7-4.5); Lymphocytes % 23.3 % (10-50); Mean Corpuscular HGB Conc 32.3 g/dL (31.8-35.4); Mean Corpuscular Volume 95.9 fl (81-99); Mean Platelet Volume 9.6 fl (7.4-10.4); Monocytes # 0.5 K/mm3 (0.1-1.0); Monocytes % 5.2 % (1.7-9.3); Neutrophils # 6.7 K/mm3 (1.8-7.8); Neutrophils % 66.4 % (37.0-80.0); Platelet Count 219 K/mm3 (142-424); Red Blood Count 3.91 M/mm3 (4.20-5.40); Red Cell Distribution Width 13.6 % (11.5-17.5)
[2023-04-27 14:40] LABS: Appearance,Urine CLEAR (Clear); Bilirubin,Urine Negative (Negative); Blood, Urine Negative (Negative); Color,Urine YELLOW (Yellow); Glucose,Urine (UA) Negative (Negative); Ketones,Urine Negative (Negative); Leukocyte Esterase,Urine Negative (Negative); Nitrate,Urine Negative (Negative); Protein,Urine Negative (Negative); Urobilinogen,Urine 0.2 EU/dl (0.2)
[2023-04-27 14:43] LABS: Albumin Level 4.1 g/dl (3.5-5.0); Anion Gap 9.4 mEq/L (5-15); Blood Urea Nitrogen 22 mg/dl (7-17); Calcium 9.5 mg/dl (8.4-10.2); Carbon Dioxide 28 mmol/L (22.0-30.0); Chloride 105 mmol/L (98-107); Estimated Glomerular Filt Rate 47 ml/min (>60); GFR (African American) 57 ML/MIN (>60); Glucose 92 mg/dl (74-100); Phosphorous 4.2 mg/dl (2.5-4.5); Potassium 4.4 mmoL/L (3.5-5.1); Sodium 138 mmol/L (136-145)
[2023-04-27 14:56] LABS: Intact Parathyroid Hormone 3.6 pg/mL (7.5-53.5)
[2023-04-27 15:02] LABS: 25-OH Vitamin D, Total 57.8 ng/mL (30-100)
[2023-04-27 15:11] LABS: Bacteria,Urine 1+ /lpf
[2023-04-27 16:59] LABS: Total Protein,Urine Random < 5.0 mg/dL (0.0-12.0)
[2023-04-27 17:05] LABS: Creatinine,Urine Random 173 mg/dL (Not Estab.)
== END 2023-04-27 23:59 ==
PROVIDERS: PCP Family Medicine; Visit Provider Internal Medicine Nephrology
DX: N18.31 Chronic kidney disease, stage 3a (principal); D64.9 Anemia, unspecified
CPT/HCPCS: 36415; 80069; 81001; 82306; 82570; 83970; 84155; 85025

== ENCOUNTER 2023-05-12 16:04 | Outpatient (POV) | payer MEDICARE, SELFPAY | END 2023-05-12 23:59 | disposition home or self-care (01) | LOC: SC 16:04 | PROVIDERS: PCP Family Medicine; Visit Provider Dermatology | DX: Z00.00 Encounter for general adult medical examination without abnormal findings (principal) ==

== ENCOUNTER 2023-07-02 14:18 | Outpatient (POV) | payer MEDICARE, SELFPAY ==
[2023-07-02 14:33] VITALS: BP 140/70; PULSE 65; RESP 18; O2SAT 98; BMI 26.6
--- NOTE | 2023-07-02 15:07 | A.OFFVIS_ITS ---
[facility] Pain Management SOAP Note Subjective:: Patient is a pleasant 83-year-old female who presents today for follow-up. Today she rates her pain a 3-out of 10 however she states the pain will go much higher with increased activity. Patient does state that the pain is all in her left shoulder related to arthritis and a tear. Patient does state that she has been seeing an orthopedic provider there at who has done some additional intra-articular injections that have given some improvement but typically last only about a month. Patient does state that they did talk like that she needed a total shoulder replacement however she is trying to postpone this as long as possible. Patient does state that the pain is affecting her sleeping and that frequently she tosses and turns and it is affecting her overall pain. Patient does state the pain interferes with her ability perform activities of daily living such as cooking and cleaning. Patient was previously prescribed from our office compounded cream, methocarbamol 500 mg twice a day and tizanidine 4 mg at bedtime. Patient states that she really did not notice the most benefit between the compounded cream and the tizanidine to help her sleep and relax. Patient would like refills on this if any way possible. Her Diogenes has been reviewed and is appropriate. Review of Systems: General: No recent weight changes, no fever, no sleep disturbances Respiratory: No cough, no shortness of air, no recurring pulmonary infections Cardiovascular/peripheral vascular: No chest pain, no palpitations, no edema, no shortness of breath Gastrointestinal: No new onset incontinence, normal bowel movements reported Genitourinary: No new onset incontinence Musculoskeletal: Left shoulder pain Psychiatric: [Normal mood/affect] Neurological: [Denies weakness in extremities], [denies balance issues] Objective:: Physical Exam: General: Alert and oriented x3, no acute distress, pleasant and cooperative Lungs: Respirations even and unlabored, symmetrical chest expansion Eyes: PERRL Musculoskeletal: Flexion and extension of left shoulder somewhat guarded secondary to pain, [antalgic gait noted] Neurological: Speech clear, no gross sensory deficit Assessment:: Degenerative disc disease of lumbar spine with lumbar radiculopathy symptoms, left shoulder pain Plan:: Patient is experiencing significant pain in her left shoulder with limited range of motion. I have discussed with patient that she may benefit from a suprascapular nerve block. Risk and benefits were discussed with patient and she would like to proceed forward with this plan of care. I will also send a 3- month supply of her tizanidine 4 mg at bedtime. Patient will be scheduled for a suprascapular nerve block left-sided. Patient has been instructed to contact the clinic with any concerns before the next appointment. Dr. Patel has reviewed this note and agrees with this plan of care. This note was dictated using voice recognition software and make contain errors or omissions. [facility] Disclaimer: The information contained in this section may have been updated after the patient was seen, as this information can be updated by other users. Medical History Arthritis HLD (hyperlipidemia) HTN (hypertension) Surgical History H/O tubal ligation History of total right hip replacement Family History Other No significant family history Social History Smoking Status: Never smoker alcohol intake: never current occupational status: other Travel in the last 8 weeks: None
== END 2023-07-02 23:59 | disposition home or self-care (01) ==
PROVIDERS: PCP Family Medicine; Visit Provider Nurse Practitioner Family
DX: M51.16 Intervertebral disc disorders with radiculopathy, lumbar region (principal); M25.512 Pain in left shoulder
CPT/HCPCS: 99212; G0463

== ENCOUNTER 2023-07-14 12:44 | Day surgery (SDC) | payer MEDICARE, SELFPAY ==
[2023-07-14 13:05] VITALS: BP 157/65; PULSE 57; RESP 18; TEMP 36.8; O2SAT 99; BMI 27.4
[2023-07-14 13:11] VITALS: BP 190/80; PULSE 61; RESP 18; O2SAT 98
[2023-07-14] MEDS: BUPIVACAINE 0.25% 10ML INJ 25 MG IJ (13:13)
[2023-07-14] MEDS: LIDOCAINE 1% 5ML PF VIAL 5 ML (13:13)
[2023-07-14] MEDS: methylPREDNISolone ACETATE 80MG/ML VIAL 80 MG (13:13)
--- NOTE | 2023-07-14 13:13 | EXP.PAIN.PRO ---
Procedure Date: 07/14/23 Time: 13:10 Anesthesiologist:: Hans Cherry CRNA Complications:: None Pre-procedure Diagnosis:: Chronic left shoulder pain. DJD left shoulder. Post-procedure Diagnosis:: Same. Indications for Procedure:: Patient is a very pleasant 83-year-old female comes our clinic today for a left suprascapular nerve block. Patient has exhausted intra-articular injections in terms of relief of her left shoulder pain. Patient has 5/5 strength in the left arm. However, limited range of motion secondary to left shoulder pain. She rates her pain 5/10. Procedure Details:: Details of the procedure were explained to the patient. The patient was taken to the procedure room placed in the sitting position. The area over the left superior border of the scapula was cleaned using chlorhexidine's cleansing solution. Using a 25-gauge needle the left superior lateral margin of the scapula was accessed with ease. After negative aspiration 8 cc of a solution containing 0.25% Marcaine +1% lidocaine and 40 mg of Depo-Medrol was injected. Patient tolerated procedure without difficulty. There are no complications. Plan and Disposition:: Patient was reevaluated 10 minutes post procedure. She reports 90% improvement terms of her overall left shoulder pain. Range of motion is improved significantly. She was discharged without incident.
[2023-07-14 13:20] VITALS: BP 186/86; PULSE 63; RESP 18; O2SAT 99
== END 2023-07-14 13:20 | disposition home or self-care (01) ==
PROVIDERS: PCP Family Medicine; Visit Provider Nurse Anesthetist, Certified Registered
DX: M19.012 Primary osteoarthritis, left shoulder (principal); M25.512 Pain in left shoulder; G89.29 Other chronic pain
CPT/HCPCS: 64418; J1010

== ENCOUNTER 2023-07-27 15:14 | Outpatient (POV) | payer MEDICARE, SELFPAY ==
[2023-07-27 15:40] VITALS: BP 155/74; PULSE 61; RESP 18; O2SAT 98; BMI 26.9
--- NOTE | 2023-07-27 16:02 | A.OFFVIS_ITS ---
[facility] Pain Management SOAP Note Subjective:: Patient is a pleasant 83-year-old female who presents today for follow-up of left suprascapular nerve block on 07/14/2023. Today she rates her pain a 2 out of 10. Patient states she has had at least 50% improvement following this injection. Patient does state she has been able to sleep better and move around easier with overall decreased pain. She does state that certain activities still cause pain so she is mindful of that however she is doing much better. Patient is prescribed compounded cream and tizanidine at bedtime. She denies any side effects from this medication. Her Diogenes has been reviewed and is appropriate. Review of Systems: General: No recent weight changes, no fever, no sleep disturbances Respiratory: No cough, no shortness of air, no recurring pulmonary infections Cardiovascular/peripheral vascular: No chest pain, no palpitations, no edema, no shortness of breath Gastrointestinal: No new onset incontinence, normal bowel movements reported Genitourinary: No new onset incontinence Musculoskeletal: Low back pain Psychiatric: [Normal mood/affect] Neurological: [Denies weakness in extremities], [denies balance issues] Objective:: Physical Exam: General: Alert and oriented x3, no acute distress, pleasant and cooperative Lungs: Respirations even and unlabored, symmetrical chest expansion Eyes: PERRL Musculoskeletal: Flexion and extension of lumbar [spine] somewhat guarded secondary to pain, [antalgic gait noted] Neurological: Speech clear, no gross sensory deficit Assessment:: Degenerative disc disease of lumbar spine with lumbar radiculopathy symptoms, left shoulder pain Plan:: Patient has had significant improvement following her injection and does not require any additional injection therapy at this time. Patient will return to clinic in 1 month for reevaluation of symptoms and plan of care. Patient has been instructed to contact the clinic with any concerns before the next appointment. Dr. Ptael has reviewed this note and agrees with this plan of care. This note was dictated using voice recognition software and make contain errors or omissions. [facility] Disclaimer: The information contained in this section may have been updated after the patient was seen, as this information can be updated by other users. Medical History Arthritis HLD (hyperlipidemia) HTN (hypertension) Surgical History H/O tubal ligation History of total right hip replacement Family History Other No significant family history Social History Smoking Status: Never smoker alcohol intake: never current occupational status: retired Travel in the last 8 weeks: None
== END 2023-07-27 23:59 | disposition home or self-care (01) ==
LOC: SC.PAIN 15:15
PROVIDERS: PCP Family Medicine; Visit Provider Nurse Practitioner Family
DX: M51.16 Intervertebral disc disorders with radiculopathy, lumbar region (principal); M25.512 Pain in left shoulder
CPT/HCPCS: 99212; G0463

== ENCOUNTER 2023-08-13 10:42 | Outpatient (CLI) | payer MEDICARE, SELFPAY ==
[2023-08-13 10:53] LABS: Microscopic, Urine URINE MICROSCOPIC (MICROSCOPIC)
[2023-08-13 11:27] LABS: Basophils # 0.1 K/mm3 (0-0.2); Basophils % 0.8 % (0.1-2.0); Eosinophils # 0.3 K/mm3 (0.0-0.4); Eosinophils % 3.7 % (0.1-12.0); Hematocrit 36.6 % (37.0-47.0); Hemoglobin 11.7 g/dL (12.2-16.2); Lymphocytes % 24.1 % (10-50); Mean Corpuscular Hemoglobin 31.5 pg (27.0-31.2); Mean Corpuscular Volume 98.3 fl (81-99); Mean Platelet Volume 9.2 fl (7.4-10.4); Monocytes # 0.5 K/mm3 (0.1-1.0); Monocytes % 5.5 % (1.7-9.3); Neutrophils # 5.5 K/mm3 (1.8-7.8); Neutrophils % 65.9 % (37.0-80.0); Platelet Count 202 K/mm3 (142-424); Red Blood Count 3.72 M/mm3 (4.20-5.40); Red Cell Distribution Width 13.8 % (11.5-17.5); White Blood Count 8.3 K/mm3 (4.8-10.8)
[2023-08-13 11:54] LABS: Alanine Aminotransferase 29 U/L (12-78); Albumin Level 3.7 g/dl (3.5-5.0); Albumin/Globulin Ratio 1.5 (1.1-1.8); Alkaline Phosphatase 59 U/L (38-126); Anion Gap 11.3 mEq/L (5-15); Aspartate Amino Transferase 38 U/L (14-36); Bilirubin,Total 0.8 mg/dl (0.2-1.3); Blood Urea Nitrogen 23 mg/dl (7-17); Calcium 9.1 mg/dl (8.4-10.2); Carbon Dioxide 29 mmol/L (22.0-30.0); Chloride 102 mmol/L (98-107); Chol/HDL Ratio 1.7 (1-3.5); Cholesterol 102 mg/dl (140-200); Estimated Glomerular Filt Rate 43 ml/min (>60); GFR (African American) 52 ML/MIN (>60); Globulin 2.4 g/dL (1.3-3.2); Glucose 100 mg/dl (74-100); HDL Cholesterol 60 mg/dl (40-60); Magnesium 1.9 mg/dl (1.6-2.3); Phosphorous 4.2 mg/dl (2.5-4.5); Potassium 4.3 mmoL/L (3.5-5.1); Sodium 138 mmol/L (136-145); Total Protein,Serum 6.1 g/dl (6.3-8.2); Triglycerides 190 mg/dl (30-150); Uric Acid 4.5 mg/dl (2.5-6.2); VLDL Cholesterol 38 mg/dL (0-40)
[2023-08-13 11:57] LABS: Albumin Level 3.7 g/dl (3.5-5.0); Anion Gap 11.3 mEq/L (5-15); Blood Urea Nitrogen 23 mg/dl (7-17); Calcium 9.2 mg/dl (8.4-10.2); Carbon Dioxide 29 mmol/L (22.0-30.0); Chloride 102 mmol/L (98-107); Estimated Glomerular Filt Rate 43 ml/min (>60); GFR (African American) 52 ML/MIN (>60); Glucose 99 mg/dl (74-100); Phosphorous 4.1 mg/dl (2.5-4.5); Potassium 4.3 mmoL/L (3.5-5.1); Sodium 138 mmol/L (136-145)
[2023-08-13 12:07] LABS: Direct LDL Cholesterol < 30.00 mg/dL (100-129)
[2023-08-13 15:30] LABS: Total Protein,Urine Random < 5.0 mg/dL (0.0-12.0)
[2023-08-13 15:30] LABS: Creatinine,Urine Random 151 mg/dL (Not Estab.)
[2023-08-13 15:31] LABS: Creatinine,Urine Random 152 mg/dL (Not Estab.)
[2023-08-13 15:36] LABS: Appearance,Urine CLEAR (Clear); Bilirubin,Urine Negative (Negative); Blood, Urine Negative (Negative); Color,Urine YELLOW (Yellow); Glucose,Urine (UA) Negative (Negative); Ketones,Urine Negative (Negative); Leukocyte Esterase,Urine Negative (Negative); Nitrate,Urine Negative (Negative); Protein,Urine Negative (Negative); Specific Gravity, Urine 1.015 (1.005-1.030); Urobilinogen,Urine 0.2 EU/dl (0.2)
[2023-08-13 15:38] LABS: Microalbumin < 6.000 mg/L (0-16.7)
[2023-08-13 16:42] LABS: Bacteria,Urine Trace /lpf
== END 2023-08-13 23:59 | disposition home or self-care (01) ==
LOC: LAB 10:43
PROVIDERS: PCP Family Medicine; Visit Provider Internal Medicine Nephrology
DX: N18.31 Chronic kidney disease, stage 3a (principal); E78.00 Pure hypercholesterolemia, unspecified; I10 Essential (primary) hypertension; N18.32 Chronic kidney disease, stage 3b; R25.2 Cramp and spasm
CPT/HCPCS: 36415; 80053; 80061; 80069; 81001; 82043; 82570; 83498; 83735; 84100; 84156; 84550; 85025

== ENCOUNTER 2023-08-17 12:51 | Outpatient (POV) | payer MEDICARE, SELFPAY | END 2023-08-17 23:59 | disposition home or self-care (01) | LOC: SC 12:51 | PROVIDERS: Visit Provider Internal Medicine Nephrology | DX: Z00.00 Encounter for general adult medical examination without abnormal findings (principal) ==

== ENCOUNTER 2023-09-03 08:58 | Outpatient (POV) | payer MEDICARE, SELFPAY ==
--- NOTE | 2023-09-03 09:19 | A.OFFVIS_ITS ---
[facility] Pain Management SOAP Note Subjective:: Patient is a pleasant 83-year-old female who presents today for 1 month follow- up. Today she rates her pain a 7 out of 10. Patient denies any new trauma or injury. Patient does state that she is starting to have worsening pain in her left shoulder. She describes this as an aching, throbbing sensation that does limit her mobility and affects her ability to perform activities of daily living such as cooking and cleaning. Patient did previously have her last suprascapular nerve block in June that did provide 50% improvement or more and lasted up until about the last week. Patient does state that during that time that it works well she had improved function and would like to see about having this repeated. Patient is prescribed tizanidine 4 mg at bedtime and compounded cream. Her Diogenes has been reviewed and is appropriate. Review of Systems: General: No recent weight changes, no fever, no sleep disturbances Respiratory: No cough, no shortness of air, no recurring pulmonary infections Cardiovascular/peripheral vascular: No chest pain, no palpitations, no edema, no shortness of breath Gastrointestinal: No new onset incontinence, normal bowel movements reported Genitourinary: No new onset incontinence Musculoskeletal: Left shoulder pain Psychiatric: [Normal mood/affect] Neurological: [Denies weakness in extremities], [denies balance issues] Objective:: Physical Exam: General: Alert and oriented x3, no acute distress, pleasant and cooperative Lungs: Respirations even and unlabored, symmetrical chest expansion Eyes: PERRL Musculoskeletal: Flexion and extension of left shoulder somewhat guarded secondary to pain, [antalgic gait noted] Neurological: Speech clear, no gross sensory deficit Assessment:: Degenerative disc disease of lumbar spine with lumbar radiculopathy symptoms, left shoulder pain Plan:: Patient is experiencing worsening pain in her left shoulder with limited range of motion. Patient has prior had suprascapular nerve block that did provide more than 50% relief lasting nearly 2 months. I have discussed with the patient that she may benefit from repeat shoulder nerve block. Risk and benefits were discussed with patient and she would like to proceed forward with this plan of care. I will also send in a 3-month supply of her tizanidine. Patient will be scheduled for suprascapular nerve block left-sided. Patient has continued at home exercising and stretching between injections with minimal relief. Patient has been instructed to contact the clinic with any concerns before the next appointment. Dr. Patel has reviewed this note and agrees with this plan of care. This note was dictated using voice recognition software and make contain errors or omissions. [facility] Disclaimer: The information contained in this section may have been updated after the patient was seen, as this information can be updated by other users. Medical History Arthritis HLD (hyperlipidemia) HTN (hypertension) Surgical History H/O tubal ligation History of total right hip replacement Family History Other No significant family history Social History Smoking Status: Never smoker alcohol intake: never current occupational status: retired Travel in the last 8 weeks: None
[2023-09-03 09:22] VITALS: BP 121/79; PULSE 68; RESP 16; O2SAT 100; BMI 26.0
== END 2023-09-03 23:59 | disposition home or self-care (01) ==
PROVIDERS: PCP Family Medicine; Visit Provider Nurse Practitioner Family
DX: M51.16 Intervertebral disc disorders with radiculopathy, lumbar region (principal); M25.512 Pain in left shoulder
CPT/HCPCS: 99212; G0463

== ENCOUNTER 2023-09-22 07:36 | Day surgery (SDC) | payer MEDICARE, SELFPAY ==
[2023-09-22 08:19] VITALS: BP 141/81; PULSE 73; RESP 18; TEMP 36.6; O2SAT 99; BMI 26.6
[2023-09-22] MEDS: methylPREDNISolone ACETATE 80MG/ML VIAL 80 MG (08:22)
[2023-09-22 08:23] VITALS: BP 180/62; PULSE 68; RESP 18; O2SAT 98
[2023-09-22] MEDS: BUPIVACAINE 0.25% 10ML INJ 25 MG IJ (08:23)
[2023-09-22] MEDS: LIDOCAINE 1% 5ML PF VIAL 5 ML (08:23)
--- NOTE | 2023-09-22 08:25 | EXP.PAIN.PRO ---
Procedure Date: 09/22/23 Time: 08:20 Anesthesiologist:: Hans Cherry CRNA Complications:: None Pre-procedure Diagnosis:: DJD left shoulder. Chronic left shoulder pain. Post-procedure Diagnosis:: Same. Indications for Procedure:: Patient is a pleasant 83-year-old female comes to clinic today with continued left shoulder pain. Patient has 5/5 strength in the left arm. However limited range of motion of the left shoulder joint due to pain. Patient describes pain as constant, dull, aching. She rates pain 6/10. Patient responded very well to the same suprascapular block in June 2023. She reports 50% improvement or more lasting for 3 to 4 months. Procedure Details:: Details of the procedure were explained to the patient. The patient was taken to the procedure room placed in the sitting position. The area over the left superior border of the scapula was cleaned using chlorhexidine's cleansing solution. Using a 25-gauge needle the left superior lateral margin of the scapula was accessed with ease. After negative aspiration 8 cc of a solution containing 0.25% Marcaine +1% lidocaine and 40 mg of Depo-Medrol was injected. Patient tolerated procedure without difficulty. There are no complications. Plan and Disposition:: Patient was discharged without incident.
[2023-09-22 08:28] VITALS: BP 180/62; PULSE 68; RESP 18; O2SAT 98
[2023-09-22 08:32] VITALS: BP 179/78; PULSE 66; RESP 16; O2SAT 97
== END 2023-09-22 08:32 | disposition home or self-care (01) ==
PROVIDERS: PCP Family Medicine; Visit Provider Nurse Anesthetist, Certified Registered
DX: M25.512 Pain in left shoulder (principal); M17.12 Unilateral primary osteoarthritis, left knee
CPT/HCPCS: 20610; J1010

== ENCOUNTER 2023-09-29 15:58 | Outpatient (POV) | payer MEDICARE, SELFPAY | END 2023-09-29 23:59 | disposition home or self-care (01) | LOC: SC 15:59 | PROVIDERS: PCP Family Medicine; Visit Provider Dermatology | DX: Z00.00 Encounter for general adult medical examination without abnormal findings (principal) ==

== ENCOUNTER 2023-10-08 08:35 | Outpatient (POV) | payer MEDICARE, SELFPAY ==
[2023-10-08 08:53] VITALS: BP 152/78; PULSE 81; RESP 18; O2SAT 98; BMI 26.6
--- NOTE | 2023-10-08 09:12 | EXP.PAIN.SOA ---
[facility] Disclaimer: The information contained in this section may have been updated after the patient was seen, as this information can be updated by other users. Medical History Arthritis HLD (hyperlipidemia) HTN (hypertension) Surgical History H/O tubal ligation History of total right hip replacement Family History Other No significant family history Social History Smoking Status: Never smoker alcohol intake: never current occupational status: retired Travel in the last 8 weeks: None PM Subjective & Objective Subjective Subjective:: Patient is a pleasant 83-year-old female who presents today for follow-up of left suprascapular nerve block on 09/22/2023. Today she rates her pain a 2 out of 10. She states that she has had at least 95% improvement with this injection and feels like it still helping. Patient states that it did take a couple days to kick in however immediately after that. She was able to sleep better and felt more functional. Patient states that she has not even had to take any of her muscle relaxers because of the decreased pain. She is currently prescribed tizanidine 4 mg at night and compounded cream. Her Diogenes has been reviewed and is appropriate. Review of Systems: General: No recent weight changes, no fever, no sleep disturbances Respiratory: No cough, no shortness of air, no recurring pulmonary infections Cardiovascular/peripheral vascular: No chest pain, no palpitations, no edema, no shortness of breath Gastrointestinal: No new onset incontinence, normal bowel movements reported Genitourinary: No new onset incontinence Musculoskeletal: Left shoulder pain Psychiatric: [Normal mood/affect] Neurological: [Denies weakness in extremities], [denies balance issues] Pain at rest (0-10 scale): 2 Objective Objective:: Physical Exam: General: Alert and oriented x3, no acute distress, pleasant and cooperative Lungs: Respirations even and unlabored, symmetrical chest expansion Eyes: PERRL Musculoskeletal: Flexion and extension of left shoulder somewhat guarded secondary to pain, [antalgic gait noted] Neurological: Speech clear, no gross sensory deficit Has patient had previous pain injection?: Yes Percent improvement in pain since last injection: 95% Conservative treatment options previously tried: Home exercise plan Length of treatment: Longer than 6 weeks Meds Home Medications and Allergies Home Medications ?Medication ?Instructions ?Recorded ?Confirmed ?Type alendronate 35 mg tablet 35 mg PO DIRECTED BONE HEALTH 04/21/19 09/22/23 History aspirin 81 mg tablet,delayed 81 mg PO DAILY Blood thinner 04/21/19 09/22/23 History release (Adult Aspirin Regimen) estradiol 1 mg tablet 1 mg PO DIRECTED SUPPLIMENT 04/21/19 09/22/23 History medroxyprogesterone 2.5 mg tablet 2.5 mg PO DIRECTED SUPPLIMENT 04/21/19 09/22/23 History metoprolol succinate 50 mg 50 mg PO DIRECTED BLOOD PRESSURE 04/21/19 09/22/23 History tablet,extended release 24 hr rosuvastatin 40 mg tablet 40 mg PO DAILY Cholesterol 04/21/19 09/22/23 History irbesartan 300 mg tablet 300 mg PO DAILY BLOOD PRESSURE 09/06/21 09/22/23 History gabapentin 100 mg capsule 100 mg PO DIRECTED Pain 05/19/22 09/22/23 History tramadol 50 mg tablet 50 mg PO DIRECTED Pain 05/19/22 09/22/23 History methocarbamol 500 mg tablet 500 mg PO BID PRN muscle pain #60 11/27/22 09/22/23 Rx tabs tizanidine 4 mg tablet (Zanaflex) 4 mg PO HS . #30 tabs 09/03/23 09/22/23 Rx New Prescriptions to Start Prescriptions: Allergies Allergy/AdvReac Type Severity Reaction Status Date / Time celecoxib [From Celebrex] Allergy Intermediate I-RASH Verified 09/22/23 08:20 Sulfa (Sulfonamide Allergy Intermediate I-RASH Verified 09/22/23 08:20 Antibiotics) Assessment and Plan *Assessment and plan (1) Arthritis of both shoulder regions: Status: Acute Category: Medical Code(s): M19.011 - Primary osteoarthritis, right shoulder; M19.012 - Primary osteoarthritis, left shoulder (2) Lumbar radiculopathy: Status: Acute Category: Medical Code(s): M54.16 - Radiculopathy, lumbar region (3) Degenerative disc disease, lumbar: Status: Acute Category: Medical Code(s): M51.36 - Other intervertebral disc degeneration, lumbar region Plan Patient had significant improvement following her injection and does not require any additional injection therapy at this time. Patient will return to clinic in 2 months for reevaluation of symptoms and plan of care. Patient has been instructed to contact the clinic with any concerns before the next appointment. Dr. Patel has reviewed this note and agrees with this plan of care. This note was dictated using voice recognition software and make contain errors or omissions. All injections are used with Lidocaine or Bupivacaine and Depo Medrol.
== END 2023-10-08 23:59 | disposition home or self-care (01) ==
LOC: SC.PAIN 08:35
PROVIDERS: PCP Family Medicine; Visit Provider Nurse Practitioner Family
DX: M19.011 Primary osteoarthritis, right shoulder (principal); M19.012 Primary osteoarthritis, left shoulder; M54.16 Radiculopathy, lumbar region; M51.36 Other intervertebral disc degeneration, lumbar region
CPT/HCPCS: 99212; G0463

== ENCOUNTER 2023-12-22 13:30 | Outpatient (POV) | payer MEDICARE, SELFPAY | END 2023-12-22 23:59 | disposition home or self-care (01) | LOC: SC 12-23 06:37 | PROVIDERS: Visit Provider Dermatology | DX: Z00.00 Encounter for general adult medical examination without abnormal findings (principal) ==

== ENCOUNTER 2024-03-03 08:00 | Outpatient (RCR) | payer MEDICARE, SELFPAY | END 2024-03-03 23:59 | disposition home or self-care (01) | LOC: OT 08:00 | PROVIDERS: PCP Family Medicine; Visit Provider Student in an Organized Health Care Education/Training Program | DX: M25.512 Pain in left shoulder (principal); Z96.612 Presence of left artificial shoulder joint | CPT/HCPCS: 97014; 97110; 97140; 97166; G0283 ==

== ENCOUNTER 2024-04-07 08:00 | Outpatient (RCR) | payer MEDICARE, SELFPAY | END 2024-04-07 23:59 | disposition home or self-care (01) | LOC: OT 08:00 | PROVIDERS: PCP Family Medicine; Visit Provider Student in an Organized Health Care Education/Training Program | DX: Z98.890 Other specified postprocedural states (principal); Z96.612 Presence of left artificial shoulder joint | CPT/HCPCS: 97014; 97110; 97140; G0283 ==

== ENCOUNTER 2024-07-23 09:20 | Outpatient (CLI) | payer MEDICARE, SELFPAY ==
--- NOTE | 2024-07-23 | XR_ITS ---
PROCEDURE INFORMATION: Exam: XR Left Shoulder Exam date and time: 07/23/2024 9:29 AM Age: 84 years old Clinical indication: Pain; Left; Prior surgery; Surgery date: 6+ months; Surgery type: Shoulder replacement in dec; Additional info: Pain, PT was hit in shoulder with swing & has had sharp pains since yesterday TECHNIQUE: Imaging protocol: Radiologic exam of the left shoulder. Views: 2 or more views. COMPARISON: MR SHOULDER LT WO CON 10/27/2022 7:39 AM FINDINGS: Bones/joints: There are postop changes from a left reverse shoulder arthroplasty. There is normal alignment.. There is no fracture. There is articular cartilage loss present the left acromioclavicular joint with dorsal spurring. Soft tissues: Normal. IMPRESSION: 1. Status post left reverse shoulder arthroplasty. 2. No fracture.
--- OUTSIDE RECORDS SUMMARY | 2024-07-23 09:24 | XMS_ITS ---
Author Organization Unknown TREATMENT PLAN Planned Care Start Date Provider Encounter for Check-up [id number] [facility]
== END 2024-07-23 23:59 | disposition home or self-care (01) ==
LOC: LAB 09:22
PROVIDERS: PCP Family Medicine; Visit Provider Family Medicine
DX: M25.512 Pain in left shoulder (principal)
CPT/HCPCS: 73030

== ENCOUNTER 2024-08-06 09:55 | Emergency (ER) | payer MEDICARE, SELFPAY ==
[2024-08-06] VITALS (7 sets, daily range): BP systolic 141–191; BP diastolic 43–85; PULSE 59–75; RESP 11–20; TEMP 36.6–36.7; O2SAT 82–99; BMI 26.0
--- NOTE | 2024-08-06 10:26 | XR_ITS ---
PROCEDURE INFORMATION: Exam: XR Left Shoulder Exam date and time: 08/06/2024 10:26 AM Age: 84 years old Clinical indication: Pain; Shoulder; Left; Additional info: Left shoulder pain TECHNIQUE: Imaging protocol: Radiologic exam of the left shoulder. Views: 2 or more views. COMPARISON: CR XR SHOULDER LT MIN 2V 07/23/2024 9:29 AM FINDINGS: Bones/joints: No acute fracture or malalignment. Left glenohumeral reverse arthroplasty in satisfactory alignment, without appreciable loosening or fracture. Soft tissues: Normal. IMPRESSION: No acute fracture or malalignment. Left glenohumeral reverse arthroplasty in satisfactory alignment, without appreciable loosening or fracture.
--- NOTE | 2024-08-06 10:26 | XR_ITS ---
PROCEDURE INFORMATION: Exam: XR Left Humerus Exam date and time: 08/06/2024 10:27 AM Age: 84 years old Clinical indication: Pain; Shoulder; Left; Additional info: Left shoulder pain TECHNIQUE: Imaging protocol: Radiologic exam of the left humerus. Views: 2 or more views. COMPARISON: CR XR SHOULDER LT MIN 2V 08/06/2024 10:26 AM FINDINGS: Bones/joints: No acute fracture or malalignment. Left shoulder reverse arthroplasty in satisfactory alignment, without appreciable loosening or fracture. Soft tissues: Normal. IMPRESSION: No acute fracture or malalignment. Left shoulder reverse arthroplasty in satisfactory alignment, without appreciable loosening or fracture.
--- NOTE | 2024-08-06 10:33 | ECG_ITS ---
APPROVED REPORT Exam: Resting ECG HR:61 bpm ECG Measurements Heart Rate 61 AXES AZ 211 P 50 QRSd 84 QRS 11 QT 413 T 67 QTc 416 Conclusion SINUS RHYTHM WITH FIRST DEGREE AV BLOCK WITH OCCASIONAL SUPRAVENTRICULAR PREMATURE COMPLEXES No STEMI Electronically signed by : KRISTINA GRIFFITHS, 08/06/2024 14:38:16
--- NOTE | 2024-08-06 10:44 | HMH.EDGENADL ---
Discharge Plan Disposition Patient Disposition: Home, Self-Care Condition: Good Prescriptions Prescriptions: New methocarbamol 500 mg tablet 500 mg PO Q8H PRN (Reason: pain) Qty: 20 0RF No Action rosuvastatin 40 mg tablet 40 mg PO DAILY alendronate 35 mg tablet 35 mg PO DIRECTED estradiol 1 mg tablet 1 mg PO DIRECTED medroxyprogesterone 2.5 mg tablet 2.5 mg PO DIRECTED metoprolol succinate 50 mg tablet extended release 24 hr 200 mg PO DIRECTED aspirin [Adult Aspirin Regimen] 81 mg tablet,delayed release (DR/EC) 81 mg PO DAILY irbesartan 300 mg tablet 300 mg PO DAILY tramadol 50 mg tablet 50 mg PO DIRECTED gabapentin 100 mg capsule 100 mg PO DIRECTED methocarbamol 500 mg tablet 500 mg PO BID PRN (Reason: muscle pain) Qty: 60 2RF tizanidine [Zanaflex] 4 mg tablet 4 mg PO HS Qty: 30 2RF Referrals Follow up/Referrals: Tony Bhatti MD [Primary Care Provider] - See instructions Activity Restrictions/Add. Instructions Additional Instructions/Restrictions: You were evaluated in the emergency department today. 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 X-rays do not show any reason for your pain, so it may be beneficial to get an MRI on an outpatient basis with either your primary care provider or your shoulder surgeon. Please follow-up with both of them. Continue taking Tylenol every 4-6 hours as needed for pain. Return to the emergency department for new or worsening symptoms. Clinical Impressions Clinical Impression: Acute pain of left shoulder Instructions Patient Instructions: DI for Acute Pain -- Adult, DI for Shoulder Pain Print Language Print Language: Malawian Discharge ED Provider: Marina Zamudio General Adult HPI General Chief complaint: PAIN Stated complaint: left shoulder pain Time Seen by Provider: 08/06/24 10:00 Mode of Arrival: Ambulatory Source of Information: Patient Description of Symptoms (Recalled from ER Triage Doc. by RN): pt presents to the ED with c/o left shoulder pain. pt reports she had a replacement shoulder surgery in December and metal plates were placed. pt reports on 07/22 she was hit by a metal swing and that is when the pain first started. pt states the pain is sharp and radiates down her left arm. pt was sent by her PCP for a x-ray on 07/23. X-Ray showed a large hematoma per pt. History of Present Illness HPI narrative: This patient is an 84-year-old female with a history of prior left shoulder surgery in December presented to the emergency department for evaluation with concern for left shoulder pain. Patient states that she was struck by a metal swing 07/22/2024 in the left shoulder, and since then she has been having intermittent severe sharp pains that hit her out of nowhere. She states that it feels like she is being stabbed with a hot poker. She notes it is right in the front of her left shoulder and is nonradiating. Nothing seems to bring it on, nothing makes it better or worse. She does not have pain at rest and has no pain with movements. No numbness, tingling, weakness, or other concerns. She also denies any chest pain or shortness of breath. She notes she saw her primary care provider for this on 07/23/2024 and had x-rays obtained, and she spoke with them again yesterday about it and was told that is probably does not healed. She notes that the pain was so severe this morning that she felt she could throw up. Given this, she came in for evaluation Related Data Home Medications ?Medication ?Instructions ?Recorded ?Confirmed alendronate 35 mg tablet 35 mg PO DIRECTED BONE HEALTH 04/21/19 09/22/23 aspirin 81 mg tablet,delayed 81 mg PO DAILY Blood thinner 04/21/19 09/22/23 release (Adult Aspirin Regimen) estradiol 1 mg tablet 1 mg PO DIRECTED SUPPLIMENT 04/21/19 09/22/23 medroxyprogesterone 2.5 mg tablet 2.5 mg PO DIRECTED SUPPLIMENT 04/21/19 09/22/23 metoprolol succinate 50 mg 200 mg PO DIRECTED BLOOD 04/21/19 09/22/23 tablet,extended release 24 hr PRESSURE rosuvastatin 40 mg tablet 40 mg PO DAILY Cholesterol 04/21/19 09/22/23 irbesartan 300 mg tablet 300 mg PO DAILY BLOOD PRESSURE 09/06/21 09/22/23 gabapentin 100 mg capsule 100 mg PO DIRECTED Pain 05/19/22 09/22/23 tramadol 50 mg tablet 50 mg PO DIRECTED Pain 05/19/22 09/22/23 Previous Rx's ?Medication ?Instructions ?Recorded methocarbamol 500 mg tablet 500 mg PO BID PRN muscle pain #60 11/27/22 tabs tizanidine 4 mg tablet (Zanaflex) 4 mg PO HS . #30 tabs 09/03/23 methocarbamol 500 mg tablet 500 mg PO Q8H PRN pain #20 tabs 08/06/24 Allergies Allergy/AdvReac Type Severity Reaction Status Date / Time celecoxib (From Celebrex) Allergy Intermediate I-RASH Verified 09/22/23 08:20 Sulfa (Sulfonamide Allergy Intermediate I-RASH Verified 09/22/23 08:20 Antibiotics) [facility] Disclaimer: The information contained in this section may have been updated after the patient was seen, as this information can be updated by other users. Medical History Arthritis HTN (hypertension) HLD (hyperlipidemia) Surgical History H/O tubal ligation History of total right hip replacement Family History Other No significant family history Social History Smoking Status: Never smoker alcohol intake: never current occupational status: retired Travel in the last 8 weeks?: None Have you lived/traveled outside US in past 30 days?: No Contact w/someone who lives/traveled outside US past 30 days?: No Exposure to someone with infectious disease in past 14 days?: No Do you have a fever (greater than 100.4 F or 38 C)?: No Have you tested positive for COVID-19?: No Exposed to someone with COVID-19 in past 14 days?: No Do you have a sore throat?: No Do you have a cough?: No Do you have any weakness?: No Do you have any diarrhea?: No Are you experiencing any unusual bleeding?: No Do you have any muscle aches/pain?: Yes Do you have any abdominal pain?: No Are you experiencing loss of taste or smell?: No Other Medical History Have you received the Flu Vaccine for this season: Yes Have you received the Pneumonia Vaccine: Yes ROS Obtained: Yes All systems reviewed & no additional complaints except as documented Physical Exam General General appearance: alert and in no apparent distress Head Head exam: atraumatic and normocephalic Eye Eye exam: Present normal appearance, PERRL and EOMI ENT ENT exam: Present normal exam, normal oropharynx, mucous membranes moist and normal external ear exam Neck Neck exam: Present normal inspection, full ROM and trachea midline; Absent tenderness Chest Chest inspection: Present normal inspection and symmetric chest wall rise; Absent tenderness Respiratory Respiratory exam: Present normal lung sounds bilaterally; Absent respiratory distress, wheezes, stridor or accessory muscle use Cardiovascular Cardiovascular exam: Present regular rate and normal rhythm Abdominal Exam Abdominal exam: Present soft; Absent distention, tenderness or guarding Extremities Exam Extremities exam: Present normal inspection, full ROM and normal capillary refill; Absent tenderness or edema Back Exam Back exam: Present normal inspection and full ROM; Absent tenderness Neurological Exam Neurological exam: Present alert, oriented X3, CN II-XII intact and normal gait; Absent motor sensory deficit Psychiatric Psychiatric exam: Present normal affect and normal mood Skin Skin exam: Present warm and dry Medical Decision Making Medical Records Medical records reviewed: Yes I reviewed the patient's medical records. Screening: Per USPSTF and CDC recommendations, given the prevalence of disease in our region, it is our hospital?s policy to screen for HIV and viral Hepatitis for all patients aged 18 and over and those with ongoing risk factors. Diogenes Inquiry Pt receiving controlled substance: No Vital Signs: 08/06/24 10:11 08/06/24 10:14 08/06/24 10:31 Temperature 97.9 F Temperature Source Oral Pulse Rate 66 75 Pulse Rate [Right] 65 Respiratory Rate 20 Blood Pressure 191/70 H 161/72 H Blood Pressure [Right Arm] 179/85 H Blood Pressure Mean [Right Arm] 116 Blood Pressure Source [Right Arm] Automatic Cuff Blood Pressure Position [Right Arm] Supine 02 Sat by Pulse Oximetry 98 98 99 Oxygen Delivery Method Room Air 08/06/24 11:00 08/06/24 11:30 08/06/24 12:00 Temperature Temperature Source Pulse Rate 72 59 L 63 Pulse Rate [Right] Respiratory Rate 13 11 L 15 Blood Pressure 142/72 H 141/43 H 166/62 H Blood Pressure [Right Arm] Blood Pressure Mean [Right Arm] Blood Pressure Source [Right Arm] Blood Pressure Position [Right Arm] 02 Sat by Pulse Oximetry 82 L 99 97 Oxygen Delivery Method 08/06/24 12:18 Temperature 98.0 F Temperature Source Pulse Rate 61 Pulse Rate [Right] Respiratory Rate 13 Blood Pressure 166/62 H Blood Pressure [Right Arm] Blood Pressure Mean [Right Arm] Blood Pressure Source [Right Arm] Blood Pressure Position [Right Arm] 02 Sat by Pulse Oximetry Oxygen Delivery Method Lab Data Lab results reviewed: Yes I reviewed the patient's lab results. Lab Results 08/06/24 10:52: WBC 8.0, RBC 4.21, Hgb 12.8, Hct 40.5, MCV 96.2, MCH 30.4, MCHC 31.6 L, RDW 12.7, Plt Count 214, MPV 11.5 H, Neut % (Auto) 66.6, Lymph % (Auto) 20.3, [place] % (Auto) 6.4, Eos % (Auto) 5.6, Baso % (Auto) 1.0, Neut # (Auto) 5.3, Lymph # (Auto) 1.6, [place] # (Auto) 0.5, Eos # (Auto) 0.5 H, Baso # (Auto) 0.1, Sodium 130 L, Potassium 4.2, Chloride 106, Carbon Dioxide 29, Anion Gap -0.8 L, BUN 25 H, Creatinine 1.10 H, Estimated Creat Clear 39, Estimated GFR 47 L, Est GFR ( Amer) 57 L, Glucose 93, Calcium 9.3, Total Bilirubin 1.1, AST 35, ALT 20, Alkaline Phosphatase 66, Troponin I < 0.01, Total Protein 6.9, Albumin 4.2, Globulin 2.7, Albumin/Globulin Ratio 1.6 08/06/24 10:52 08/06/24 10:52 Orders (Tests/Meds): ED MEDICATIONS Discontinued Medications Generic Name Dose Route Start Last Admin Trade Name Freq PRN Reason Stop Dose Admin Acetaminophen 1,000 mg 08/06/24 10:26 08/06/24 11:20 Acetaminophen 500mg Tab PO 08/06/24 10:27 Not Given ONCE ONE Ketorolac Tromethamine 15 mg 08/06/24 10:26 08/06/24 11:06 Ketorolac 30mg/Ml Vial IV 08/06/24 10:27 15 mg ONCE ONE Administration Lidocaine 1 each 08/06/24 10:26 08/06/24 11:06 Lidocaine 5% Transdermal Patch TD 08/06/24 10:27 1 each ONCE ONE Administration Methocarbamol 500 mg 08/06/24 10:27 08/06/24 11:05 Methocarbamol 500mg Tablet PO 08/06/24 10:28 500 mg ONCE ONE Administration ORDERS Category Date Time Status Humerus XR left [XR humerus LT] Stat Exams 08/06/24 10:26 Completed Shoulder XR left minimum 2 views [XR shoulder LT min 2V Exams 08/06/24 10:26 Completed ] Stat Complete Blood Count Auto Diff Stat Lab 08/06/24 10:52 Completed Comprehensive Metabolic Panel Stat Lab 08/06/24 10:52 Completed Trop I [Troponin I] Stat Lab 08/06/24 10:52 Completed ECG Data Tracing #1: I reviewed this ECG and interpreted as documented below: Normal sinus rhythm with a ventricular rate of [address] changes concerning for ischemia. First-degree AV block with a PA interval of 211 ms. Normal QTc ECG initial impression date: 08/06/24 ECG initial impression time: 10:34 Medical Decision Narrative: In summary, this patient is a 84-year-old female presenting to the Emergency Department for evaluation of left shoulder pain that is intermittent and severe. Differential diagnoses considered include but are not limited to musculoskeletal strain/sprain, arthropathy, neuropathy, ACS, fracture, complex regional pain syndrome. ruling out the most morbid conditions drove assessment. It should be noted patient's history includes chronic shoulder pain for which she had surgery in December for shoulder replacement, she has been doing well since then with no continued pain. This complicates all aspects of care by increasing patient's risk for morbidity. I reviewed patient's past medical records and noted prior x-ray obtained by her PCP on an outpatient basis for this left shoulder pain with no acute fracture. On exam, the patient has a normal shoulder exam with no significant tenderness to palpation, no pain or limitations in range of motion. She is neurovascularly intact. Cardiopulmonary exam is reassuring. Workup included CBC, CMP, troponin, x-rays of the left shoulder and humerus. I independently interpreted x-ray prior to the radiologist read and noted no acute fracture. Please see their read for final interpretation. Labs were obtained that demonstrated reassuring CBC, chemistry, and negative troponin. She has mild hyponatremia but I do not feel this is likely contributing to current clinical presentation. I advised her to follow-up outpatient for this. EKG obtained is reassuring. On reassessment, patient had great improvement after administration of interventions above. I feel she is appropriate for discharge home with follow-up with her orthopedic surgeon as well as with her primary care provider. I feel we have excluded acute life-threatening pathology as a cause of her symptoms..She was discharged with prescription for Robaxin and instructions for supportive management. Strict return precautions were given at time of discharge Critical Care Critical Care Time Critical Care Time: No
[2024-08-06 11:01] LABS: Basophils # 0.1 K/mm3 (0-0.2); Eosinophils # 0.5 Kmm3 (0.0-0.4); Eosinophils % 5.6 % (0.1-12.0); Hematocrit 40.5 % (37.0-47.0); Hemoglobin 12.8 g/dL (12.2-16.2); Immature Granulocytes # 0.01 10^3uL; Immature Granulocytes % 0.1 %; Lymphocytes # 1.6 K/mm3 (0.7-4.5); Lymphocytes % 20.3 % (10-50); Mean Corpuscular HGB Conc 31.6 g/dL (31.8-35.4); Mean Corpuscular Hemoglobin 30.4 pg (27.0-31.2); Mean Corpuscular Volume 96.2 fl (81-99); Mean Platelet Volume 11.5 fl (7.4-10.4); Monocytes # 0.5 K/mm3 (0.1-1.0); Monocytes % 6.4 % (1.7-9.3); Neutrophils # 5.3 K/mm3 (1.8-7.8); Neutrophils % 66.6 % (37.0-80.0); Nucleated Red Blood Cells # 0 10^3/uL; Nucleated Red Blood Cells % 0 %; Platelet Count 214 K/mm3 (142-424); Red Blood Count 4.21 M/mm3 (4.20-5.40); Red Cell Distribution Width 12.7 % (11.5-17.5); Red Cell Distribution Width-SD 45.3 fL
[2024-08-06] MEDS: METHOCARBAMOL 500MG TABLET 500 MG PO (11:05)
[2024-08-06] MEDS: KETOROLAC 30MG/ML VIAL 15 MG IV (11:06)
[2024-08-06] MEDS: LIDOCAINE 5% TRANSDERMAL PATCH 1 EACH TD (11:06)
[2024-08-06 11:15] LABS: Albumin Level 4.2 g/dl (3.5-5.0); Chloride 106 mmol/L (98-107); Potassium 4.2 mmoL/L (3.5-5.1); Sodium 130 mmol/L (136-145)
[2024-08-06 11:18] LABS: Alanine Aminotransferase 20 U/L (12-78); Albumin/Globulin Ratio 1.6 (1.1-1.8); Alkaline Phosphatase 66 U/L (38-126); Anion Gap -0.8 mEq/L (5-15); Aspartate Amino Transferase 35 U/L (14-36); Bilirubin,Total 1.1 mg/dl (0.2-1.3); Blood Urea Nitrogen 25 mg/dl (7-17); Carbon Dioxide 29 mmol/L (22.0-30.0); Creatinine Clearance Estimated 39 mL/min (50-200); Estimated Glomerular Filt Rate 47 ml/min (>60); GFR (African American) 57 ML/MIN (>60); Globulin 2.7 g/dL (1.3-3.2); Total Protein,Serum 6.9 g/dl (6.3-8.2)
[2024-08-06 11:19] LABS: Calcium 9.3 mg/dl (8.4-10.2); Glucose 93 mg/dl (74-100)
[2024-08-06 11:41] LABS: Troponin I < 0.01 ng/ml (0.00-0.034)
== END 2024-08-06 12:25 | disposition home or self-care (01) ==
PROVIDERS: Emergency Provider Emergency Medicine; PCP Family Medicine
DX: M25.512 Pain in left shoulder (principal); E87.1 Hypo-osmolality and hyponatremia; I44.0 Atrioventricular block, first degree; W22.8XXA Striking against or struck by other objects, initial encounter; Z96.612 Presence of left artificial shoulder joint
CPT/HCPCS: 73030; 73060; 80053; 84484; 85025; 93005; 96374; 99284; J1885

== ENCOUNTER 2024-10-03 11:29 | Outpatient (CLI) | payer MEDICARE, SELFPAY ==
--- OUTSIDE RECORDS SUMMARY | 2024-08-05 05:15 | XMS_ITS ---
Author Organization [facility] Address [address] [place] [id number] Care Team Providers Care Correspondence Section Supervisor Name Role Phone Tony Bhatti Primary Care Provider Allergies Allergen (clinical drug ingredient) Drug/Non Drug Allergy documented on EMR Reaction Allergy Type Onset Date Status celecoxib CeleBREX Unknown Drug Allergy Active lisinopril Lisinopril Unknown Drug Allergy Activ e Sulfamethoxazole Unknown Drug Allergy Active Results Component Value Reference Range Notes P-Comprehensive Metabolic Pa abdifatah (CMP) Reviewed date:08/09/2024 01:12:24 PM Interpretation:satisfactory Performing Lab: Notes/Report: Test performed by [facility], [address] , [address], [place] [address] Dario Sánchez MD, [place] Former CLIA: [id number] Sodium 141 135-145 mmol/L Potassium 4.4 3.5-5.3 mmol/L Chloride 105 97-108 mmol/L CO2 24 22-32 mmol/L Glucose 83 65-99 mg/dL BUN 17 8-23 mg/dL Creatinine 0.95 0.50-1.00 mg/dL Calcium 9.3 8.6-10.4 mg/dL eGFR by Creatinine 59 >59 mL/min/1.73m2 Protein 6.8 6.0-8.3 g/dL Albumin 4.3 3.5-5.3 g/dL Alkaline Phosphatase 86 35-121 IU/L ALT (SGPT) 17 <5-47 IU/L AST (SGOT) 29 <5-40 IU/L Bilirubin, Total 0.9 <0.2-1.2 mg/dL A/G Ratio 1.7 1.1-2.5 P-Lipid Panel Reviewed date:08/09/2024 01:12:24 PM Interpretation:Normal Performing Lab: Notes/Report: Test performed by [facility], [address] , [address], [place] [address] Dario Sánchez MD, [place] Former CLIA: [id number] Cholesterol 96 <200 mg/dL Triglycerides 99 <150 mg/dL HDL Cholesterol 47 >39 mg/dL Cholesterol / HDL Ratio 2.04 0.00-4.44 Ratio Non-HDL Cholesterol 49 <130 mg/dL LDL Cholesterol (Calculation) 29 <130 mg/dL LDL Cholesterol Levels* Less than 100 mg/dL Optimal 100 to 129 mg/dL Near Optimal/ Above Optimal 130 to 159 mg/dL Borderline High 160 to 189 mg/dL High 190 mg/dL and above Very High * Categories as recommended by the 2004 ATPIII guidelines LDL/HDL Ratio 0.6 <3.3 Ratio LDL Cholesterol Patient History Test Date: 08/05/2024 LDL Results: 29 Units: mg/dL % Change: - P-TSH reflex to FT4 Reviewed date:08/09/2024 01:12:24 PM Interpretation:Normal Performing Lab: Notes/Report: Test performed by [facility] [address] [place] [address] , [address], [place] [address] Dario Sánchez MD, [place] Former CLIA: [id number] TSH reflex to FT4 2.36 0.43-5.25 mU/L P-Microalbumin/Creatinine, R andom Urine Sample Reviewed date:08/09/2024 01:12:24 PM Interpretation:Normal Performing Lab: Notes/Report: Test performed by [facility] [address] [place] [address] , [address], [place] [address] Dario Sánchez MD, [place] Former CLIA: [id number] Albumin/Creatinine Ratio, Urine <5.02 0-30 ug/m g Microalbumin, Urine, Random <0.3 Creatinine, Urine 59.7 REASON FOR VISIT 6 months with fasting labs Medications Medication SIG (Take, Route, Frequency, Duration) Notes Start Date End Date Status Rosuvastatin Calcium 40 MG TAKE 1 TABLET AT BEDTIME Active Irbesartan 300 MG 1 tab(s) orally once a day Active Metoprolol Succinate ER 200 MG TAKE 1 TA BLET EVERY DAY Active Estradiol 1 MG TAKE 1 TABLET EVERY DAY; Duration: 90 Active medroxyPROGESTERone Acetate 2.5 MG TAKE 1 TABLET EVERY DAY; Duration: 90 Active Multivitamin - 1 tab(s) orally once a day Active Alendronate Sodium 35 MG TAKE 1 TABLET O NE TIME WEEKLY; Duration: 84 Active Aspirin 81 81 MG 1 tablet Orally Once a day; Duration: 30 day(s) 12/25/2023 Active Calcium Citrate 250 MG 1 tab(s) orally o nce a day as needed 04/22/2013 Active Amitriptyline HCl 25 MG 1 or 2 tablets a t bedtime Orally Once a day; Duration: 30 day(s) 06/29/2023 Active tiZANidine HCl 4 MG 1 tablet at bedtime as needed Orally Once a day; Duration: 30 day(s) Active Jenna Allergy 180 MG 1 tab(s) orally o nce a day Active Problems Problem Type SNOMED Code ICD Code Onset Dates Problem Status W/U Status Risk Notes Problem Primary insomnia (2708496) Primary insomnia (F51.01) Active confirmed Vital Signs Weight 147.4 lbs 08/05/2024 Blood pressure systolic 136 mm Hg 08/06/19 25 Blood pressure diastolic 82 mm Hg 025 Heart Rate 65 /min 08/05/2024 Height 63.50 in 08/05/2024 BMI 25.7 kg/m2 08/05/2024 Encounters Encounter Location Date Provider Diagnosis [facility] [address] [facility] [address] [place] [id number] 08/05/2024 Tony Bhatti Pure hypercholestero lemia E78.00 ; Essential hypertension I10 ; CKD (chronic kidney disease) stage 2, GFR 60-89 ml/min N18.2 ; Primary insomnia F51.01 ; Stage 3b chronic kidney disease N18.32 ; Insomnia, unspecified type G47.00 and BMI 25.0-25.9,adult Z68.25 Assessments Encounter Date Diagnosis (ICD Code) Assessment Notes Treatment Notes Treatment Clinical Notes Section Notes 08/05/2024 Pure hypercholesterolemia (ICD-10 - E78.00) 08/05/2024 Essential hypertensi on (ICD-10 - I10) 08/05/2024 CKD (chronic kidney disease) stage 2, GFR 60-89 ml/min (ICD-10 - N18.2) 08/05/2024 Primary insomnia (IC D-10 - F51.01) 08/05/2024 Stage 3b chronic kid kristine disease (ICD-10 - N18.32) 08/05/2024 Insomnia, unspecifie d type (ICD-10 - G47.00) 08/05/2024 BMI 25.0-25.9,adult (ICD-10 - Z68.25) Plan Of Treatment Medication Medication Name Sig Start Date Stop Date Notes Rosuvastatin Calcium 40 MG TAKE 1 TABLET AT BEDTIME Irbesartan 300 MG 1 tab(s) orally once a day Metoprolol Succinate ER 200 MG TAKE 1 TABLET EVERY DAY Next Appt Details Follow Up: 6 Months, Reason: Progress Notes * Ashleigh NICHOLEDOB: 0 (84 yo F)Acc No.[id number]:08/05/2024 Progress Notes Patient: Matti Ashleigh KEITH Provider: Felice Bhatti M.D. :1940 A ge:84 Y S ex:Female Date:08/05/2024 Address:[address] [place], [place], [id number] Subjective: * Chief Complaints: * 1 . 6 months with fasting labs. * HPI: H PI: 84 year old female presents with c/o Patient is here today for?Pt is here today for a 6 month check up with fasting labs. * ROS: D ERMATOLOGY: no R dena. n o H berta. G ASTROENTEROLOGY: no N ausea. n o V omiting. U ROLOGY: no D ifficulty urinating. n o B lood in urine. * Medical History: H ypercholestrolemia, Allergic Rhinitis, RT Distal femur Fracture, 07/2011, Atrophic Vaginitis, Hypertension, Osteopenia, Dx: 2018, Chronic kidney disease, stage 3b as of 2021, followed by Nephrology, Shoulder pain. * Surgical History: L T Ankle 1958, Tubal Ligation 1962, Varicose Vein 1969, LT Arm Melanoma Removal 2010, RT Broken Femur Plate Placement 2011, Colonoscopy: Polyps 01/2013, RT Hip Replacement 08/2016, Bilateral Cataract - Bilateral 11/2017. * Hospitalization/Major Diagno stic Procedure: B roken Femur Plates Placed- [place] 2011. * Family History: F ather: . M other: . S iblings: Sister- Knee Replacement. 1 sister(s) . 2 son(s) , 2 daughter(s) - healthy. . * Social History: C URRENT TOBACCO USE S moking Status: Patient does NOT smoke. C affeine: yes, frequency: 4-6 cups a day. Exercise: yes, ride exercise bike. Marital Status: . Alcohol: No. Sexually active: yes. * Medications: T aking tiZANidine HCl 4 MG Tablet 1 tablet at bedtime as needed Orally Once a day , Taking Jenna Allergy 180 MG Tablet 1 tab(s) orally once a day , Taking Multivitamin - Tablet 1 tab(s) orally once a day , Taking Calcium Citrate 250 MG Tablet 1 tab(s) orally once a day as needed , Taking Amitriptyline HCl 25 MG Tablet 1 or 2 tablets at bedtime Orally Once a day , Taking Alendronate Sodium 35 MG Tablet TAKE 1 TABLET ONE TIME WEEKLY , Taking Aspirin 81 81 MG Tablet Delayed Release 1 tablet Orally Once a day , Taking Irbesartan 300 MG Tablet 1 tab(s) orally once a day , Taking Metoprolol Succinate ER 200 MG Tablet Extended Release 24 Hour TAKE 1 TABLET EVERY DAY , Taking Rosuvastatin Calcium 40 MG Tablet TAKE 1 TABLET AT BEDTIME , Taking medroxyPROGESTERone Acetate 2.5 MG Tablet TAKE 1 TABLET EVERY DAY , Taking Estradiol 1 MG Tablet TAKE 1 TABLET EVERY DAY , Medication List reviewed and reconciled with the patient * Allergies: S ulfamethoxazole, CeleBREX, Lisinopril: Side Effects. Objective: * Vitals: W t: 147.4, Temp: 97.8, BP: 136/82, HR: 65, Nurse: [facility], Ht: 63.50, BMI:25.7. * Examination: C ardiology: General Appearance: p leasant, NAD. H eart sounds: R RR, normal S1, S2. L ungs: c lear, no rales or wheezes. E xtremities: n o leg edema. P eripheral pulses: 2 plus bilateral. Assessment: * Assessment: 1. P ure hypercholesterolemia - E78.00 (Primary) 2 . E ssential hypertension - I10 3 . C KD (chronic kidney disease) stage 2, GFR 60-89 ml/min - N18.2 4 . P rimary insomnia - F51.01 5 . S tage 3b chronic kidney disease - N18.32 6 . I nsomnia, unspecified type - G47.00 7 . B MN 25.0-25.9,adult - Z68.25 Plan: * Treatment: Value Reference Range A /G Ratio 1.7 1.1-2.5 - * A lbumin 4.3 3.5-5.3 - g/dL * A lkaline Phosphatase 86 35-121 - IU/L * A LT (SGPT) 17 <5-47 - IU/L * A ST (SGOT) 29 <5-40 - IU/L * B ilirubin, Total 0.9 <0.2-1.2 - mg/dL * B UN 17 8-23 - mg/dL * C alcium 9.3 8.6-10.4 - mg/dL * C hloride 105 97-108 - mmol/L * C O2 24 22-32 - mmol/L * C reatinine 0.95 0.50-1.00 - mg/dL * G lucose 83 65-99 - mg/dL * P otassium 4.4 3.5-5.3 - mmol/L * S odium 141 135-145 - mmol/L * P rotein 6.8 6.0-8.3 - g/dL * e GFR by Creatinine 59 L >59 - mL/min/1.73m2 * Alina Matthews 08/09/2024 01:11: 55 PM > Pt informed ?LAB: P-Lipid Panel (Collection Date & Time - 08/05/2024 08:35 AM)?Normal* Value Reference Range C holesterol / HDL Ratio 2.04 0.00-4.44 - Ratio * C holesterol 96 <200 - mg/dL * H DL Cholesterol 47 >39 - mg/dL * L DL Cholesterol (Calculation) 29 <130 - mg/d L * L DL/HDL Ratio 0.6 <3.3 - Ratio * N on-HDL Cholesterol 49 <130 - mg/dL * T riglycerides 99 <150 - mg/dL * Alina Matthews 08/09/2024 01:11: 55 PM > Pt informed ?LAB: P-TSH reflex to FT4 (Collection Date & Time - 08/05/2024 08:35 AM)? Normal* Value Reference Range T SH reflex to FT4 2.36 0.43-5.25 - mU/L * Alina Matthews 08/09/2024 01:11: 55 PM > Pt informed 2.?Essential hypertension? Continue Irbesartan Tablet, 300 MG, 1 tab(s), orally, once a day;?Continue Metoprolol Succinate ER Tablet Extended Release 24 Hour, 200 MG, TAKE 1 TABLET EVERY DAY.?LAB: P-Comprehensive Metabolic Panel (CMP) (Collection Date & Time - 08/05/2024 08:35 AM)?satisfactory* Value Reference Range A /G Ratio 1.7 1.1-2.5 - * A lbumin 4.3 3.5-5.3 - g/dL * A lkaline Phosphatase 86 35-121 - IU/L * A LT (SGPT) 17 <5-47 - IU/L * A ST (SGOT) 29 <5-40 - IU/L * B ilirubin, Total 0.9 <0.2-1.2 - mg/dL * B UN 17 8-23 - mg/dL * C alcium 9.3 8.6-10.4 - mg/dL * C hloride 105 97-108 - mmol/L * C O2 24 22-32 - mmol/L * C reatinine 0.95 0.50-1.00 - mg/dL * G lucose 83 65-99 - mg/dL * P otassium 4.4 3.5-5.3 - mmol/L * S odium 141 135-145 - mmol/L * P rotein 6.8 6.0-8.3 - g/dL * e GFR by Creatinine 59 L >59 - mL/min/1.73m2 * Alina Matthews 08/09/2024 01:11: 55 PM > Pt informed ?LAB: P-Microalbumin/Creatinine, Random Urine Sample (Collection Date & Time - 08/05/2024 08:35 AM)?Normal* Value Reference Range A lbumin/Creatinine Ratio, Urine <5.02 0-30 - ug /mg * C reatinine, Urine 59.7 - mg/dL * M icroalbumin, Urine, Random <0.3 - mg/dL * Alina Matthews 08/09/2024 01:11: 55 PM > Pt informed 3.?CKD (chronic kidney disease) stage 2, GFR 60-89 ml/min?LAB: P-Comprehensive Metabolic Panel (CMP) (Collection Date & Time - 08/05/2024 08:35 AM)?satisfactory* Value Reference Range A /G Ratio 1.7 1.1-2.5 - * A lbumin 4.3 3.5-5.3 - g/dL * A lkaline Phosphatase 86 35-121 - IU/L * A LT (SGPT) 17 <5-47 - IU/L * A ST (SGOT) 29 <5-40 - IU/L * B ilirubin, Total 0.9 <0.2-1.2 - mg/dL * B UN 17 8-23 - mg/dL * C alcium 9.3 8.6-10.4 - mg/dL * C hloride 105 97-108 - mmol/L * C O2 24 22-32 - mmol/L * C reatinine 0.95 0.50-1.00 - mg/dL * G lucose 83 65-99 - mg/dL * P otassium 4.4 3.5-5.3 - mmol/L * S odium 141 135-145 - mmol/L * P rotein 6.8 6.0-8.3 - g/dL * e GFR by Creatinine 59 L >59 - mL/min/1.73m2 * Alina Matthews 08/09/2024 01:11: 55 PM > Pt informed ?LAB: P-Microalbumin/Creatinine, Random Urine Sample (Collection Date & Time - 08/05/2024 08:35 AM)?Normal* Value Reference Range A lbumin/Creatinine Ratio, Urine <5.02 0-30 - ug /mg * C reatinine, Urine 59.7 - mg/dL * M icroalbumin, Urine, Random <0.3 - mg/dL * Alina Matthews 08/09/2024 01:11: 55 PM > Pt informed * Procedure Codes: G 2211 Complex e/m visit add on, 3075F SYST BP GE 130 - 139MM HG, 3079F DIAST BP 80-89 MM HG, G8420 BMI<30 AND >=22 CALC & DOCU * Follow Up: 6 Months * Images: Billing Information: * Visit Code: 59638 Office Visit, Est Pt., Level 4. * Procedure Codes: G2211 Complex e/m visit add on. 3075F SYST BP GE 130 - 139MM HG. 3079F DIAST BP 80-89 MM HG. G8420 BMI<30 AND >=22 CALC & DOCU. * Electronic signature of Maxine Bhatti MD on 10/03/2024 at 11:32 AM EDT Sign off status: Pending * Provider: Felice Bhatti M.D. Date: 08/05/2024 Generated for Davis mosquera/Huey/Walteritting on: 10/03/2024 11:32 AM EDT History and Physical Notes * HPI (History of Present Illness) Category Sub-Category Detail Notes Category Not es HPI Patient is here today for Pt is here today for a 6 month check up with fasting labs Examination Category Sub-Category Detail Notes Category Not es Cardiology Lungs: clear, no rales or wheezes Heart sounds: RRR, normal S1, S2 Extremities: no leg edema Peripheral pulses: 2 plus bilateral General Appearance: pleasant, NAD
--- OUTSIDE RECORDS SUMMARY | 2024-09-23 06:45 | XMS_ITS ---
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 Name Role Phone Tony Bhatti Primary Care Provider [phone] ShemarSavanna swift Unavailable [phone] Allergies Allergen (clinical drug ingredient) Drug/Non Drug Allergy documented on EMR Reaction Allergy Type Onset Date Status celecoxib CeleBREX Unknown Drug Allergy Active lisinopril Lisinopril Unknown Drug Allergy Activ e Sulfamethoxazole Unknown Drug Allergy Active Results Component Value Reference Range Notes Urinalysis - Inhouse Reviewed date:09/23/2024 02:00:47 PM Interpretation: Performing Lab: Notes/Report: Color/Clarity dark yellow Leuk neg Nitrite neg Urobili neg Protein neg pH 6.0 Blood neg Sp. Gr. 1.020 Ketone neg Bili neg Gluc neg REASON FOR VISIT poss. kidney stone Medications Medication SIG (Take, Route, Frequency, Duration) Notes Start Date End Date Status Methocarbamol 500 MG 1 tab Orally 3 times a day, prn 09/23/2024 Active Alendronate Sodium 35 MG take 1 tablet orally once a week; Duration: 84 days Active Metoprolol Succinate ER 200 MG 1 tablet Orally Once a day; Duration: 90 days Active Cephalexin 500 MG 1 capsule Orally twice a day; Duration: 10 days 09/23/2024 Active Medrol 4 MG as directed Orally 09/23/2024 Active medroxyPROGESTERone Acetate 2.5 MG TAKE 1 TABLET EVERY DAY; Duration: 90 Active Aspirin 81 81 MG 1 tablet Orally Once a day; Duration: 30 day(s) 12/25/2023 Active Rosuvastatin Calcium 40 MG TAKE 1 TABLET AT BEDTIME Active Irbesartan 300 MG 1 tab(s) orally once a day Active Estradiol 1 MG TAKE 1 TABLET EVERY DAY; Duration: 90 Active Amitriptyline HCl 25 MG 1 or 2 tablets a t bedtime Orally Once a day; Duration: 30 day(s) 06/29/2023 Active Calcium Citrate 250 MG 1 tab(s) orally once a day as needed 04/22/2013 Active Multivitamin - 1 tab(s) orally once a day Active Jenna Allergy 180 MG 1 tab(s) orally once a day Active tiZANidine HCl 4 MG 1 tablet at bedtime as needed Orally Once a day; Duration: 30 day(s) Not-Taking Vital Signs Weight 147.6 lbs 09/23/2024 Blood pressure systolic 130 mm Hg 09/24/19 25 Blood pressure diastolic 60 mm Hg 025 Heart Rate 64 /min 09/23/2024 Height 63.50 in 09/23/2024 BMI 25.73 kg/m2 09/23/2024 Encounters Encounter Location Date Provider Diagnosis [facility] [address], [place] [id number] 09/23/2024 Savanna Dunn Spasm of back muscle s M62.830 ; Other injury of unspecified body region, initial encounter T14.8XXA and Local infection of the skin and subcutaneous tissue, unspecified L08.9 Assessments Encounter Date Diagnosis (ICD Code) Assessment Notes Treatment Notes Treatment Clinical Notes Section Notes 09/23/2024 Spasm of back muscles (ICD-10 - M62.830) 09/23/2024 Other injury of unspecified body region, initial encounter (ICD-10 - T14.8XXA) 09/23/2024 Local infection of the skin and subcutaneous tissue, unspecified (ICD-10 - L08.9) Plan Of Treatment Medication Medication Name Sig Start Date Stop Date Notes Methocarbamol 500 MG 1 tab Orally 3 times a day, prn 09/23 Cephalexin 500 MG 1 capsule Orally twi ce a day; Duration: 10 days 09/23/2024 Medrol 4 MG as directed Orally 09/23/2024 Next Appt Details Follow Up: 1 Week, Reason: Progress Notes * Ashleigh NICHOLE: 0 (84 yo F)Acc No.[id number]:09/23/2024 Progress Notes Patient: Ashleigh LAM Provider: LINDA Merritt :1940 A ge:84 Y S ex:Female Date:09/23/2024 Address:[address] [place] [address] [address] [place], [id number] Pcp:Tony Bhatti Subjective: * Chief Complaints: * 1 . Poss. kidney stone. * HPI: L ower back: 84 year old female presents with c/o Low Back Pain P t sts she woke up this morning with a sharp pain in her right lower back. Pt sts she believes she may have a kidney stone. D ermatology: c/o redness P t sts that for 3 days now she has had a spot on the bottom of her rt foot. Pt sts she first thought it was callus, but sts it is very red and painful to the point she can hardly walk on that foot at times. Pt sts she would like this examined today as well. * ROS: D ERMATOLOGY: no R dena. [...] stic Procedure: B roken Femur Plates Placed- Hardik2011. * Family History: F ather: . M [...] Sexually active: yes. * Medications: T aking Jenna Allergy 180 MG Tablet 1 tab(s) orally once a day , Taking Multivitamin - Tablet 1 tab(s) orally once a day , Taking Calcium Citrate 250 MG Tablet 1 tab(s) orally once a day as needed , Taking Amitriptyline HCl 25 MG Tablet 1 or 2 tablets at bedtime Orally Once a day , Taking Aspirin 81 81 MG Tablet Delayed Release 1 tablet Orally Once a day , Taking medroxyPROGESTERone Acetate 2.5 MG Tablet TAKE 1 TABLET EVERY DAY , Taking Estradiol 1 MG Tablet TAKE 1 TABLET EVERY DAY , Taking Irbesartan 300 MG Tablet 1 tab(s) orally once a day , Taking Rosuvastatin Calcium 40 MG Tablet TAKE 1 TABLET AT BEDTIME , Taking Metoprolol Succinate ER 200 MG Tablet Extended Release 24 Hour 1 tablet Orally Once a day , Taking Alendronate Sodium 35 MG Tablet take 1 tablet orally once a week , Not-Taking tiZANidine HCl 4 MG Tablet 1 tablet at bedtime as needed Orally Once a day , Medication List reviewed and reconciled with the patient * Allergies: S ulfamethoxazole, CeleBREX, Lisinopril: Side Effects. Objective: * Vitals: W t: 147.6, Temp: 97.9, BP: 130/60, HR: 64, Nurse: stanton, Ht: 63.50, BMI:25.73. * Examination: G eneral Examination: General Appearance: N AD. C hest: n ormal shape and expansion. H eart: R SR. L ungs: c lear to auscultation. S kin: r ight foot with a cut just below the great toe, there is no foreign body but there is surrounding erythema. Back: t tp along the right thoracic paraspinal muscles with spasm present, pain with flexion, extension, and twisting. Assessment: * Assessment: 1. S pasm of back muscles - M62.830 (Primary) 2 . O ther injury of unspecified body region, initial encounter - T14.8XXA 3 . L ocal infection of the skin and subcutaneous tissue, unspecified - L08.9 Plan: * Treatment: Value Reference Range C olor/Clarity dark yellow * L euk neg * N itrite neg * U robili neg * P rotein neg * p H 6.0 * B lood neg * S p. Gr. 1.020 * K etone neg * B kelli neg * G flores neg * Shante Roger 09/23/2024 09:5 9:38 AM EDT > Provider reviewed results while patient in office.Savanna Dunn 09/23/2024 02:00:44 PM EDT > 2.?Local infection of the skin and subcutaneous tissue, unspecified? Start Cephalexin Capsule, 500 MG, 1 capsule, Orally, twice a day, 10 days, 20 Capsule, Refills 0. ? * Procedure Codes: 8 1002 Urinalysis, no micro * Follow Up: 1 Week * Images: Billing Information: * Visit Code: 43592 Office Visit, Est Pt., Level 3. * Procedure Codes: 72023 Urinalysis, no micro. * Electronic signature of LINDA Orozco on 10/03/2024 at 11:32 AM EDT Sign off status: Pending * Provider: LINDA Merritt Date: 0 09/23/2024 Generated for Davis mosquera/Huey/eTransmitting on: 10/03/2024 11:32 AM EDT History and Physical Notes * HPI (History of Present Illness) Category Sub-Category Detail Notes Category Not es Dermatology redness Pt sts that for 3 days now she has had a spot on the bottom of her rt foot. Pt sts she first thought it was callus, but sts it is very red and painful to the point she can hardly walk on that foot at times. Pt sts she would like this examined today as well Lower back Low Back Pain Pt sts she woke up this morning with a sharp pain in her right lower back. Pt sts she believes she may have a kidney stone Examination Category Sub-Category Detail Notes Category Not es General Examination Heart: RSR Lungs: clear to auscultatio n General Appearance: NAD Skin: right foot with a cu t just below the great toe, there is no foreign body but there is surrounding erythema Back: ttp along the right thoracic paraspinal muscles with spasm present, pain with flexion, extension, and twisting Chest: normal shape and exp ansion
--- OUTSIDE RECORDS SUMMARY | 2024-09-30 07:15 | XMS_ITS ---
[facility] Address [address] [place] [id number] Care Team Providers Care Firer Marine Name Role Phone Tony Bhatti Primary Care Provider Savanna Dunn Unavailable [phone] Allergies Allergen (clinical drug ingredient) Drug/Non Drug Allergy documented on EMR Reaction Allergy Type Onset Date Status celecoxib CeleBREX Unknown Drug Allergy Active lisinopril Lisinopril Unknown Drug Allergy Activ e Sulfamethoxazole Unknown Drug Allergy Active Reason For Referral Diagnosis 1 Ganglion cyst of fin juan carlos (M67.449) [facility] Referring Provider First Name Savanna Referring Provider Last Name Shaun Referring Provider Speciality Physician Truck Jumper Referred Provider Specialty Orthopedic S urgery General Notes Savanna Dunn 11:39:07 AM >Pt needs an appt with Neela Kinney Brynn 09/30/2024 01:20:48 PM > 10/04/2024 at 01:30pm; lvm for patient with date and time Referral Priority Routine REASON FOR VISIT 1 week Medications Medication SIG (Take, Route, Frequency, Duration) Notes Start Date End Date Status tiZANidine HCl 4 MG 1 tablet at bedtime as needed Orally Once a day; Duration: 30 day(s) Not-Taking Methocarbamol 500 MG 1 tab Orally 3 times a day, prn 09/23/2024 Active Rosuvastatin Calcium 40 MG TAKE 1 TABLET AT BEDTIME Active Alendronate Sodium 35 MG take 1 tablet orally once a week; Duration: 84 days Active Metoprolol Succinate ER 200 MG 1 tablet Orally Once a day; Duration: 90 days Active Amitriptyline HCl 25 MG 1 or 2 tablets a t bedtime Orally Once a day; Duration: 30 day(s) 06/29/2023 Active medroxyPROGESTERone Acetate 2.5 MG TAKE 1 TABLET EVERY DAY; Duration: 90 Active Aspirin 81 81 MG 1 tablet Orally Once a day; Duration: 30 day(s) 12/25/2023 Active Estradiol 1 MG TAKE 1 TABLET EVERY DAY; Duration: 90 Active Irbesartan 300 MG 1 tab(s) orally once a day Active Multivitamin - 1 tab(s) orally once a day Active Jenna Allergy 180 MG 1 tab(s) orally once a day Active Calcium Citrate 250 MG 1 tab(s) orally once a day as needed 04/22/2013 Active Cephalexin 500 MG 1 capsule Orally twice a day; Duration: 10 days 09/23/2024 Active Medrol 4 MG as directed Orally 09/23/2024 Active Vital Signs Weight 146.8 lbs 09/30/2024 Blood pressure systolic 130 mm Hg 10/01/19 25 Blood pressure diastolic 70 mm Hg 025 Heart Rate 79 /min 09/30/2024 Height 63.50 in 09/30/2024 BMI 25.59 kg/m2 09/30/2024 Encounters Encounter Location Date Provider Diagnosis [facility] [facility] [address] [place] [id number] 09/30/2024 Savanna Crowdy Ganglion cyst of fin juan carlos M67.449 ; Spasm of back muscles M62.830 and Local infection of the skin and subcutaneous tissue, unspecified L08.9 Assessments Encounter Date Diagnosis (ICD Code) Assessment Notes Treatment Notes Treatment Clinical Notes Section Notes 09/30/2024 Ganglion cyst of finger (ICD-10 - M67.449) 09/30/2024 Spasm of back muscles (ICD-10 - M62.830) Resolved 09/30/2024 Local infection of the skin and subcutaneous tissue, unspecified (ICD-10 - L08.9) Resolved. Plan Of Treatment Treatment Notes Assessment Notes Spasm of back muscles Resolved Local infection of the skin and subcutan eous tissue, unspecified Resolved. Referrals Referral Date Details 09/30/2024 09/30/2024 Next Appt Details Follow Up: prn, Reason: Progress Notes * Ashleigh NICHOLE: 0 (84 yo F)Acc No.[id number]:09/30/2024 Progress Notes Patient: Ashleigh LAM Ann Provider: LINDA Merritt :1940 A ge:84 Y S ex:Female Date:09/30/2024 Address:[address] [place] [address] [address], [place], [id number] Pcp:Tony Bhatti Subjective: * Chief Complaints: * 1 . 1 week. * HPI: L ownorma back: 84 year old female presents with c/o Low Back Pain P t is here today for a 1 week f/u on lower back pain of the rt side. Pt sts her back pain is gone and sts the medication has helped. A nkle/Foot: c/o Pain P t sts the spot she had on the bottom of her foot is much better now as well. D ermatology: Pt sts she does now have a sore spot on her rt 3rd finger. Pt sts she feels as if it may have fluid in it. * ROS: D ERMATOLOGY: no R dena. [...] Sexually active: yes. * Medications: T aking Methocarbamol 500 MG Tablet 1 tab Orally 3 times a day, prn , Taking Medrol 4 MG Tablet Therapy Pack as directed Orally , Taking Cephalexin 500 MG Capsule 1 capsule Orally twice a day , Taking Jenna Allergy 180 [...] 1 tablet orally once a week , Not- Taking tiZANidine HCl 4 MG Tablet 1 tablet at bedtime as needed Orally Once a day , Medication List reviewed and reconciled with the patient * Allergies: S ulfamethoxazole, CeleBREX, Lisinopril: Side Effects. Objective: * Vitals: W t: 146.8, Temp: 98.0, BP: 130/70, HR: 79, Nurse: stanton, Ht: 63.50, BMI:25.59. * Examination: G eneral Examination: General Appearance: N AD. C hest: n ormal shape and expansion. H eart: R SR. L ungs: c lear to auscultation. S kin: r ight foot just below the great toe, cut is healed and there is no surrounding erythema or tenderness, right 3rd finger with a ganglion cyst, tender. B ack: n o ttp, full ROM of spine. ? Assessment: * Assessment: 1. G anglion cyst of finger - M67.449 (Primary) S pecify :right third digit 2 . S pasm of back muscles - M62.830 3 . L ocal infection of the skin and subcutaneous tissue, unspecified - L08.9 Plan: * Treatment: 2. S pasm of back muscles Notes: Resolved 3. L ocal infection of the skin and subcutaneous tissue, unspecified Notes: Resolved. * Follow Up: p rn * Images: Billing Information: * Visit Code: 80673 Office Visit, Est Pt., Level 3. * Procedure Codes: * Electronic signature of LINDA Orozco on 10/03/2024 at 11:32 AM EDT Sign off status: Pending * Provider: LINDA Merritt Date: 09/30/2024 Generated for Davis mosquera/Huey/eTransmitting on: 10/03/2024 11:32 AM EDT History and Physical Notes * HPI (History of Present Illness) Category Sub-Category Detail Notes Category Not es Dermatology Pt sts she does now have a sore spot on her rt 3rd finger. Pt sts she feels as if it may have fluid in it Lower back Low Back Pain Pt is here today for a 1 week f/u on lower back pain of the rt side. Pt sts her back pain is gone and sts the medication has helped Ankle/Foot Pain Pt sts the spot she had on the bottom of her foot is much better now as well Examination Category Sub-Category Detail Notes Category Not es General Examination Heart: RSR Lungs: clear to auscultatio n General Appearance: NAD Skin: right foot just belo w the great toe, cut is healed and there is no surrounding erythema or tenderness, right 3rd finger with a ganglion cyst, tender Back: no ttp, full ROM of spine Chest: normal shape and exp ansion Consultation Request Notes Referral Date Referring Provider Referred Provider Not es 09/30/2024 Savanna Dunn ,
--- OUTSIDE RECORDS SUMMARY | 2024-10-03 11:33 | XMS_ITS | Encounter Summary ---
Author Organization Healthcare Address [address] [place] [address] Care Team Providers Care Psychology Fellow Name Role Phone Tony Bhatti MD Primary Care Provider [phone] Encounter Details Date Type Department Care Team (Latest Contact Info) Description 09/30/2024 Travel Social History Tobacco Use Types Packs/Day Years Used Date Smoking Tobacco: Never Smokeless Tobacco: Never Alcohol Use Standard Drinks/Week Comments Never 0 (1 standard drink = 0.6 oz pur e alcohol) PHQ-2 Answer Date Recorded Patient Health Questionnaire-2 Score 0 05/13/2023 Comments Unknown Sex and Gender Information Value Date Recorded Sex Assigned at Not on file Legal Sex Female 6:26 PM EDT Gender Identity Not on file Sexual Orientation Not on file documented as of this encounter Plan of Treatment Upcoming Encounters Date Type Department Care Team (Late st Contact Info) Description 10/07/2024 12:00 PM EDT Office Visit [facility] [address] [place] [address] Diamond Farfan, DIRECTOR SUPPLIER QUALITY [address] [facility] [address] [place] [address] 01/06/2025 8:30 AM EDT Office Visit [facility] Orthopaedic Surgery & Sports Medicine [address] , [address] [place] [address] Silvestre Ross MD [address] [place] [address] documented as of this encounter Visit Diagnoses Not on filedocumented in this encounter Additional Health Concerns Assessment Noted Time A fall risk assessment has been complete d for the patient 04/08/2024 7:56 AM EST A Body Mass Index follow-up plan has been documented for the patient 04/08/2024 9:52 AM EST documented as of this encounter Care Teams Psychology Fellow Relationship Specialty Start Date End Date Tony Bhatti MD [address] [place] [address] PCP - General 07/27/20 documented as of this encounter
--- OUTSIDE RECORDS SUMMARY | 2024-10-03 11:33 | XMS_ITS | Clinical Summary ---
Author Organization [facility] Address [address] [place] [address] Care Team Providers Care Raw Material Handler Name Role Phone Tony Bhatti MD Primary Care Provider [phone] Allergies Active Allergy Reactions Criticality Noted Date Comments Celecoxib Unknown - Patient st ates they do not know rxn details Low 09/12/2020 Lisinopril Unknown - Patient st ates they do not know rxn details Low 09/12/2020 Sulfa Drugs Rash Medium 01/17/2022 Sulfamethoxazole Unknown - Patient st ates they do not know rxn details Low 09/12/2020 Medications fexofenadine (Jenna) 180 MG tablet Take 1 tablet (180 mg) by mouth 1 (one) time each day. Active Multiple Vitamin (multivitamin) tablet Take 1 tablet by mouth 1 (one) time each day. Active Calcium 250 MG capsule Take by mouth 1 (one) time each day. Active estradiol (Estrace) 1 MG tablet Take 1 tablet (1 mg) by mouth 1 (one) time each day. Active medroxyPROGESTER one (Provera) 2.5 MG tablet Take 1 tablet (2.5 mg) by mouth 1 (one) time each day. Active rosuvastatin (Crestor) 40 MG tablet Take 1 tablet (40 mg) by mouth every night. Active alendronate (Fosamax) 35 MG tablet Take 1 tablet (35 mg) by mouth every 7 (seven) days. Take in the morning with a full glass of water, on an empty stomach, and do not take anything else by mouth or lie down for the next 30 min. Active metoprolol succinate XL (Toprol-XL) 200 MG 24 hr tablet Take 1 tablet (200 mg) by mouth every night. Active aspirin 81 MG EC tablet Take 1 tablet (81 mg) by mouth 1 (one) time each day. Active ibuprofen 600 MG tablet Take 1 tablet (600 mg) by mouth every 6 (six) hours if needed for mild pain or moderate pain. 75 tablet 01/02/20 24 Active ondansetron (Zofran) 8 MG tablet Take 1 tablet (8 mg) by mouth every 8 (eight) hours if needed for nausea or vomiting. 25 tablet 01/02/20 24 Active irbesartan (Avapro) 300 MG tabletIndication s:Essential hypertension Take 1 tablet by mouth daily. 90 tablet 2 07/23/19 25 Active tiZANidine (Zanaflex) 4 MG tablet Take 1 tablet (4 mg) by mouth every 8 (eight) hours if needed for muscle spasms. 11/28/19 23 025 Discontinued Active Problems Problem Noted Date Diagnosed Date Status post reverse total shoulder replacement, left 01/04/2024 Osteoporosis 12/31/2023 Hypercholesterolemia 12/31/2023 Femur fracture, right 12/31/2023 Primary osteoarthritis of left shoulder 12/15/19 Stage 3a chronic kidney disease 04/18/2021 Essential hypertension 04/18/2021 Chronic kidney disease-mineral and bone disorder 04/18/2021 Osteopenia 04/18/2021 Anemia 04/18/2021 Encounters Date Type Department Care Team Description 09/30/2024 Travel 07/25/2024 Telephone [facility] Orthopaedic Surgery & Sports Medicine [address], [address] [place] [address] Silvestre Ross MD HCN - Patient Message 07/23/2024 Orders Only External Location [address] [place] [id number] Provider, External 07/22/2024 [facility] [address] [place] [address] Ragini Ray MD Essential hypertension from Last 3 Months Immunizations Immunization Administration Dates Next Due Hep A, Adult 09/04/2018 Family History Medical History Relation Name Comments No Known Problems Father No Known Problems Mother Anesthesia problems Neg Hx Malig Hyperthermia Neg Hx Relation Name Status Comments Father Mother Social History Tobacco Use Types Packs/Day Years Used Date Smoking Tobacco: Never Smokeless Tobacco: Never Tobacco Cessation:Counseling Given: Not Answered Alcohol Use Standard Drinks/Week Comments Never 0 (1 standard drink = 0.6 oz pur e alcohol) PHQ-2 Answer Date Recorded Patient Health Questionnaire-2 Score 0 05/13/2023 Comments Unknown Sex and Gender Information Value Date Recorded Sex Assigned at Not on file Legal Sex Female 6:26 PM EDT Gender Identity Not on file Sexual Orientation Not on file Last Filed Vital Signs Vital Sign Reading Time Taken Comments Blood Pressure 193/100 04/08/2024 7:56 AM EST Pulse 77 01/04/2024 10:15 AM EDT Temperature 36.2 C (97.2 F) 01/04/2024 9:55 AM EDT Respiratory Rate 14 01/04/2024 10:15 AM EDT Oxygen Saturation 99% 01/04/2024 10:15 AM EDT Inhaled Oxygen Concentration - - Weight 65.8 kg (145 lb) 04/08/2024 7:56 AM EST Height 157.5 cm (5' 2 ) 04/08/2024 7:56 AM EST Body Mass Index 26.52 04/08/2024 7:56 AM EST Plan of Treatment Upcoming Encounters Date Type Department Care Team (Late st Contact Info) Description 10/07/2024 12:00 PM EDT Office Visit [facility] [address] [place] [address] Diamond Farfan, HEAD OF DIGITAL ADVERTISING & INTEGRATION [address] [place] [address] 01/06/2025 8:30 AM EDT Office Visit [facility] Orthopaedic Surgery & Sports Medicine [address] , [address] [place] [address] Silvestre Ross MD [address] [place] [address] Health Maintenance Due Date Last Done Comments [facility]-Bone Density Scan 1940 [facility]-Medicare Annual Wellness (AWV) 1940 [facility]-Infant/Child/Adol SDOH Screenings 1940 [facility]- SDOH Screenings 06/03/1957 [facility]-Adult SDOH Screenings 06/03/1957 [facility]-Zoster Vaccines (1 of 2) 06/03/1989 [facility]-DTaP,Tdap,and Td Vaccines (1 - Tdap) 05/08/1999 05/07/1999 [facility]-RSV Vaccine: 60+ Years or (1 - 1-dose 75+ series) 06/03/2014 [id number] Vaccine (3 - season) 2023 05/23/2020, 04/25/2020 [facility]-Depression Screening 05/13/2024 05/13/2023 [facility]-Influenza Vaccine (#1) 2024 12/10/2020 [facility]-Hepatitis A Vaccines Aged Out 09/04/2018, 02/13 No longer eligible based on patient's age to complete this topic [facility]-Pneumococcal Vaccine: 50+ Years Completed 12/29/2022 [facility]-Obesity Intervention Completed 025, 02/02/2024, 01/07/2024, Additional history exists HPV Vaccines Aged Out No longer eligi ble based on patient's age to complete this topic [facility]-HIB Vaccines Aged Out No longer e ligible based on patient's age to complete this topic [facility]-IPV Vaccines Aged Out No longer e ligible based on patient's age to complete this topic [facility]-Rotavirus Vaccines Aged Out No lo nger eligible based on patient's age to complete this topic Medical Devices Implanted Type Area Dry End Tester Device Identifier Shelf Expiration Date Model / Serial / Lot Guidewire Aequalis Performplus [id number] - [id number] Implanted:Qty: 1 on 01/04/2024 by Silvestre Ross MD at [facility] Left: Shoulder [employer] ([employer])-[id number] 08/07/2028 [id number] / / [id number] Screw Perform Reversed Peripheral 5x14mm - [id number] - [id number] Implanted:Qty: 1 on 01/04/2024 by Silvestre Ross MD at [facility] Left: Shoulder [employer] ([facility])-[id number] 12/31/2024 [id number] / [id number] / Screw Perform Reversed Peripheral 5x22mm - [id number] - [id number] Implanted:Qty: 1 on 01/04/2024 by Silvestre Ross MD at [facility] Left: Shoulder [employer] [facility][id number] 68 12/31/2024 [id number] / [id number] / Cement Palacos W/Gent - [id number] Implanted:01/03 by Silvestre Ross MD at [facility] (Quantity not on file) Left: Shoulder [employer]-[id number] / / Cement Palacos - [id number] Implanted:01/03 by Silvestre Ross MD at [facility] (Quantity not on file) Left: Shoulder [employer]-[id number] / / Baseplate Perform Reversed Lateral Pls3/25mm - [id number] - [id number] Implanted:Qty: 1 on 01/04/2024 by Silvestre Ross MD at [facility] Left: Shoulder [employer] ([facility])-[id number] 68 08/17/2028 [id number] / [id number] / Post Perform Reversed Press-Fit Short 7mm - [id number] - [id number] Implanted:Qty: 1 on 01/04/2024 by Silvestre Ross MD at [facility] Left: Shoulder [employer] ([facility][id number] 68 09/06/2027 [id number] / [id number] / Glenosphere Perform Reversed Lateral Pls3/36mm - [id number] - [id number] Implanted:Qty: 1 on 01/04/2024 by Silvestre Ross MD at [facility] Left: Shoulder [employer] ([facility][id number] 68 06/19/2028 [id number] / [id number] / Stem Humeral Perfrom Sz 2 Plus - [id number] - [id number] Implanted:Qty: 1 on 01/04/2024 by Silvestre Ross MD at [facility] Left: Shoulder [employer] ([employer])-[id number] 68 08/26/2028 [id number] / [id number] / Insert Perform Rvrsd Sz1/2 36mm/Pls 0mm - [id number] - [id number] Implanted:Qty: 1 on 01/04/2024 by Silvestre Ross MD at [facility] Left: Shoulder [employer] ([employer])-[id number] 68 02/27/2028 [id number] / [id number] / Screw Perform Reversed Peripheral 5x38mm - [id number] - [id number] Implanted:Qty: 1 on 01/04/2024 by Silvestre Ross MD at [facility] Left: Shoulder [employer] ([employer])-[id number] 68 12/31/2024 [id number] / [id number] / Procedures Procedure Name Priority Date/Time Associated Diagnosis Comments XR MSK OUTSIDE IMAGES 07/23/2024 9:29 AM EDT from Last 3 Months Results * XR MSK OUTSIDE IMAGES (07/23/2024 9:29 AM EDT) Anatomical Region Laterality Modality Radiographic Cassandra ging 07/23/2024 9:29 AM EDT External Provider IMG XR PROCEDURES Final Result from Last 3 Months Insurance MEDICARE [facility] Care Teams Raw Material Handler Relationship Specialty Start Date End Date Tony Bhatti MD [address] [facility] [address] [place] [id number] PCP - General 07/27/20
--- OUTSIDE RECORDS SUMMARY | 2024-10-03 11:33 | XMS_ITS | Encounter Summary ---
Author Organization Healthcare Address [address] [place] [address] Care Team Providers Care Print Production Associate Name Role Phone Tony Bhatti MD Primary Care Provider [phone] Reason for Visit * Reason Onset Date Comments HCN - Patient Message 07/25/2024 Encounter Details Date Type Department Care Team (Late st Contact Info) Description 07/25/2024 Telephone [facility] Orthopaedic Surgery & Sports Medicine [address] [facility], [address] [place] [address] Silvestre Ross MD [address] [facility] [address] [place] [address] HCN - Patient Message Social History Tobacco Use Types Packs/Day Years [...] on file documented as of this encounter Miscellaneous Notes * Telephone Encounter - Celestine Taylor - 07/25/2024 1:42 PM EDT Spoke to the patient, relayed Dr Turner's message * Telephone Encounter - Celestine Taylor - 07/25/2024 11:38 AM EDT Left VM with patient to return call * Telephone Encounter - Celestine Taylor - 07/25/2024 11:38 AM EDT Spoke to radiology at [facility], they will powershare. * Telephone Encounter - Imani Grady - 07/25/2024 10:25 AM EDT Clinical Concern/Question Reason for Call: Cody pt. Pt had a metal swing hit her arm and she went Thursday morning for a XR.Pt is wanting Dr Ross to look at the XR. [facility] is where the [facility] done at. [phone] [facility] get her images. Please call to advise Best contact number: [phone] (home) Optimal time of day to reach caller: ANYTIME Additional comments/information from caller: None Note: Please do not reply to this message. Follow-up communication and further actions as a result of this message need to be communicated with the patient directly, if the patient is not active onMyChart. If the patient is active on MyChart, they will receive notification of the communication/outcome via [employer]. documented in this encounter Plan of Treatment Upcoming Encounters Date Type Department Care Team (Late st Contact Info) Description 10/07/2024 12:00 PM EDT Office Visit [facility] [address] [place] [address] Diamond Farfan, FOREST FIRE EQUIPMENT OPERATOR [address] [address] 01/06/2025 8:30 AM EDT Office Visit [facility] Orthopaedic Surgery & Sports Medicine [address], [address] [place] [address] Silvestre Ross MD [address] [place] [address] documented as of this encounter Visit Diagnoses Not on filedocumented in this encounter Additional Health Concerns Assessment Noted Time A fall risk assessment has been complete d for the patient 04/08/2024 7:56 AM EST A Body Mass Index follow-up plan has been documented for the patient 04/08/2024 9:52 AM EST documented as of this encounter Care Teams Print Production Associate Relationship Specialty Start Date End Date Tony Bhatti MD [address] [place] [address] PCP - General 07/27/20 documented as of this encounter
--- OUTSIDE RECORDS SUMMARY | 2024-10-03 11:33 | XMS_ITS | Encounter Summary ---
Author Organization Healthcare Address [address] [place] [address] Care Team Providers Care Conveyor Feeder Offbearer Name Role Phone Tony Bhatti MD Primary Care Provider [phone] Encounter Details Date Type Department Care Team (Late Contact Info) Description 10/27/2022 Orders Only External Location [address] [place] [phone] Provider, External Social History Tobacco Use Types Packs/Day Years Used Date Smoking Tobacco: Never Smokeless Tobacco: Never Alcohol Use Standard Drinks/Week Comments Never 0 (1 standard drink = 0.6 oz pur e alcohol) Comments Unknown Sex and Gender Information Value Date Recorded Sex Assigned at Not on file Legal Sex Female 6:26 PM EDT Gender Identity Not on file Sexual Orientation Not on file documented as of this encounter Plan of Treatment Upcoming Encounters Date Type Department Care Team (Late Contact Info) Description 10/07/2024 12:00 PM EDT Office Visit [address] [place] [address] Diamond Farfan, GUARD CAPTAIN [address] [facility] [address] [place] [address] 01/06/2025 8:30 AM EDT Office Visit [facility] Orthopaedic Surgery & Sports Medicine [address] [place] [address] Silvestre Ross MD [address] [facility] [address] [place] [address] documented as of this encounter Procedures Procedure Name Priority Date/Time Associated Diagnosis Comments MR OUTSIDE IMAGES 10/27/2022 7:39 AM EDT documented in this encounter Results * MR transfer of outside films (10/27/2022 7:39 AM EDT) Anatomical Region Laterality Modality Magnetic Resonan ce 10/27/2022 7:39 AM EDT us External Provider IMG MRI PROCEDURES Final Resul t documented in this encounter Visit Diagnoses Not on filedocumented in this encounter Care Teams Conveyor Feeder Offbearer Relationship Specialty Start Date End Date Tony Bhatti MD [address] [place] [id number] PCP - General 07/27/20 documented as of this encounter
--- OUTSIDE RECORDS SUMMARY | 2024-10-03 11:33 | XMS_ITS | Patient Health Record ---
[facility] [address] [place] [id number] Care Team Providers Care Geopolitics Teacher Name Role Phone DavyLluviaTony Primary Care Provider [phone] ShemarSavanna swift Unavailable [phone] Allergies Allergen (clinical drug ingredient) Drug/Non Drug Allergy documented on EMR Reaction Allergy Type Onset Date Status celecoxib CeleBREX Unknown Drug Allergy Active lisinopril Lisinopril Unknown Drug Allergy Activ e Sulfamethoxazole Unknown Drug Allergy Active Results Component Value Reference Range Notes P-Comprehensive Metabolic Pa abdifatah (CMP) Reviewed date:08/09/2024 01:12:24 PM Interpretation:satisfactory Performing Lab: Notes/Report: Test performed by [facility], [employer] [address] [place] [address] , [address], [place] [address] Dario Sánchez MD, Clip And Hanger Attacher CLIA: [id number] Sodium 141 135-145 mmol/L Potassium 4.4 3.5-5.3 [...] Interpretation:Normal Performing Lab: Notes/Report: Test performed by [facility] [address] [place] [address] [address] C, [place] [address] Dario Sánchez MD, Clip And Hanger Attacher CLIA: [id number] Cholesterol 96 <200 mg/dL Triglycerides 99 <150 [...] Interpretation:Normal Performing Lab: Notes/Report: Test performed by [facility] [address] [place] [address] , [address], [place] [address] Dario Sánchez MD, Clip And Hanger Attacher CLIA: [id number] TSH reflex to FT4 2.36 0.43-5.25 mU/L P-Microalbumin/Creatinine, R andom Urine Sample Reviewed date:08/09/2024 01:12:24 PM Interpretation:Normal Performing Lab: Notes/Report: Test performed by [facility] [address] [place] [address] , [address], [place] [address] Dario Sánchez MD, Clip And Hanger Attacher CLIA: [id number] Albumin/Creatinine Ratio, Urine <5.02 0-30 ug/mg Microalbumin, Urine, Random <0.3 Creatinine, Urine 59.7 Urinalysis - Inhouse Reviewed date:09/23/2024 02:00:47 PM Interpretation: Performing Lab: Notes/Report: Color/Clarity dark yellow Leuk neg Nitrite neg Urobili neg Protein neg pH 6.0 Blood neg Sp. Gr. 1.020 Ketone neg Bili neg Gluc neg X ray : Shoulder, left Reviewed date:07/25/2024 09:26:30 AM Interpretation:cartilage loss with dorsal spurring Performing Lab: Notes/Report: cartilage loss with dorsal spurring Reason For Referral Diagnosis 1 Ganglion cyst of fin juan carlos (M67.449) Referral Organization [facility] Referring Provider First Name Savanna Referring Provider Last Name Shaun Referring Provider Speciality Physician Grass Cutter Referred Provider Specialty Orthopedic S urgery General Notes Savanna Dunn 11:39:07 AM >Pt needs an appt with Neela Kinney Brynn 09/30/2024 01:20:48 PM > 10/04/2024 at 01:30pm; lvm for patient with date and time Referral Priority Routine Medications Medication SIG (Take, Route, Frequency, Duration) Notes Start Date End Date Status Multivitamin - 1 tab(s) orally once a day Active Jenna Allergy 180 MG 1 tab(s) orally once a day Active tiZANidine HCl 4 MG 1 tablet at bedtime as needed Orally Once a day; Duration: 30 day(s) Not-Taking Amitriptyline HCl 25 MG 1 or 2 tablets a t bedtime Orally Once a day; Duration: 30 day(s) 06/29/2023 Active Calcium Citrate 250 MG 1 tab(s) orally once a day as needed 04/22/2013 Active medroxyPROGESTERone Acetate 2.5 MG TAKE 1 TABLET EVERY DAY; Duration: 90 Active Aspirin 81 81 MG 1 tablet Orally Once a day; Duration: 30 day(s) 12/25/2023 Active Estradiol 1 MG TAKE 1 TABLET EVERY DAY; Duration: 90 Active Methocarbamol 500 MG 1 tab Orally 3 times a day, prn 09/23/2024 Active Rosuvastatin Calcium 40 MG TAKE 1 TABLET AT BEDTIME Active Irbesartan 300 MG 1 tab(s) orally once a day Active Cephalexin 500 MG 1 capsule Orally twice a day; Duration: 10 days 09/23/2024 Active Alendronate Sodium 35 MG take 1 tablet orally once a week; Duration: 84 days Active Medrol 4 MG as directed Orally 09/23/2024 Active Metoprolol Succinate ER 200 MG 1 tablet Orally Once a day; Duration: 90 days Active Immunizations Vaccine Route Administration Date Status Comme nts Prevnar (PCV20) IM Intramuscular 12/29/2022 Administered Hepatitis A (adult) Unknown 03/02/2018 Administered Fluzone High Dose (65yr and older) IM Intramuscular 12/10/2020 Administered given by Brenda Davdison Fluzone High Dose (65yr and older) IM Intramuscular 12/29/2022 Administered Fluzone High Dose (65yr and older) IM Intramuscular 01/29/2024 Administered DT, 7 YEARS OR OLDER Unknown 05/07/1999 Administered COVID 19 Moderna Unknown 04/25/2020 Administered COVID 19 Moderna Unknown 05/23/2020 Administered Problems Problem Type SNOMED Code ICD Code Onset Dates Problem Status W/U Status Risk Notes Problem Essential hypertension (19021051) Essential hypertension (I10) Active confirmed Problem Osteopenia (663974565) Osteopenia (M85.80) Active confirmed Problem Arthropathy of lumba r facet joint (920310966) Lumbar facet arthropathy (M47.816) Active confirmed Problem Disorder of lumbar disc (323497457) Lumbar disc disease (M51.9) Active confirmed Problem Primary insomnia (9502783) Primary insomnia (F51.01) Active confirmed Problem Bilateral tinnitus (2546503088007) Tinnitus of both ears (H93.13) Active confirmed Problem Insomnia (585779493) Insomnia, u nspecified type (G47.00) Active confirmed Problem Sciatica (86715442) Acute right- sided low back pain with right-sided sciatica (M54.41) Active confirmed Problem Prolapsed lumbar intervertebral disc (617817121) 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) Active confirmed Problem Old healed fracture of bone (342248224) Status post closed fracture of right femur (Z87.81) Active confirmed Problem Chronic sinusitis (59520092) Sinusitis, unspecified chronicity, unspecified location (J32.9) Active confirmed Problem Pure hypercholesterolemia (117413723) Pure hypercholesterolemia (E78.00) Active confirmed Problem Osteopenia (118582859) Osteopenia, unspecified location (M85.80) Active confirmed Problem Acquired hammer toe of left foot (6318232073225116) Acquired hammer toe deformity of lesser toe of left foot (M20.42) Active confirmed Problem Chronic kidney disease stage 2 (disorder) (677756276) CKD (chronic kidney disease) stage 2, GFR 60-89 ml/min (N18.2) Active confirmed Problem Chronic kidney disease stage 3B (disorder) (181479912) Stage 3b chronic kidney disease (N18.32) Active confirmed Problem Bilateral tinnitus (7940049428600) Ringing in ear, bilateral (H93.13) Active confirmed Vital Signs Heart Rate 79 /min 09/30/2024 Blood pressure diastolic 70 mm Hg 09/30/2024 Height 63.50 in 09/30/2024 Blood pressure systolic 130 mm Hg 09/30/2024 Weight 146.8 lbs 09/30/2024 BMI 25.59 kg/m2 09/30/2024 Encounters Encounter Location Date Provider Diagnosis [facility] [address] [facility] [address] [place], [place] [id number] 01/29/2024 Tony Galien Encounter for immuni zation Z23 and Essential hypertension I10 [facility] [address] [facility] [address] [place], [place] [id number] 05/23/2024 Tony Galien Pain of right middle finger M79.644 and Cyst of joint of right hand M25.841 [facility] [address] [place], [place] [id number] 07/23/2024 Tony Galien Acute pain of left s houlder M25.512 and BMI 25.0-25.9,adult Z68.25 [facility] [address] [facility] [address] [place] [address] [place], [place] [id number] 08/05/2024 Tony Galien Pure hypercholestero lemia E78.00 ; Essential hypertension I10 ; CKD (chronic kidney disease) stage 2, GFR 60-89 ml/min N18.2 ; Primary insomnia F51.01 ; Stage 3b chronic kidney disease N18.32 ; Insomnia, unspecified type G47.00 and BMI 25.0-25.9,adult Z68.25 [facility] [address] [place], [place] [id number] 09/23/2024 Savanna Crowdy Spasm of back muscle s M62.830 ; Other injury of unspecified body region, initial encounter T14.8XXA and Local infection of the skin and subcutaneous tissue, unspecified L08.9 [facility] [address] [place], [place] [id number] 09/30/2024 Savanna Crowdy Ganglion cyst of fin juan carlos M67.449 ; Spasm of back muscles M62.830 and Local infection of the skin and subcutaneous tissue, unspecified L08.9 [facility] [address] [place], [place] [id number] 12/24/2023 Tony Galien [facility] [address] [place], [place] [id number] 07/25/2024 Tony Galien [facility] [address] [place], [place] [id number] 08/09/2024 Tony Galien Assessments Encounter Date Diagnosis (ICD Code) Assessment Notes Treatment Notes Treatment Clinical Notes Section Notes 09/30/2024 Ganglion cyst of fin juan carlos (ICD-10 - M67.449) 01/29/2024 Essential hypertensi on (ICD-10 - I10) 01/29/2024 Encounter for immunization (ICD-10 - Z23) 05/23/2024 Pain of right middle finger (ICD-10 - M79.644) Ice, symptomatic treatment, call with any new symptoms 05/23/2024 Cyst of joint of rig ht hand (ICD-10 - M25.841) 07/23/2024 BMI 25.0-25.9,adult (ICD-10 - Z68.25) 07/23/2024 Acute pain of left shoulder (ICD-10 - M25.512) R.I.C.E. therapy 08/05/2024 Essential hypertensi on (ICD-10 - I10) 08/05/2024 Pure hypercholesterolemia (ICD-10 - E78.00) 09/23/2024 Spasm of back muscle s (ICD-10 - M62.830) 09/23/2024 Other injury of unspecified body region, initial encounter (ICD-10 - T14.8XXA) 08/05/2024 CKD (chronic kidney disease) stage 2, GFR 60-89 ml/min (ICD-10 - N18.2) 09/23/2024 Local infection of t he skin and subcutaneous tissue, unspecified (ICD-10 - L08.9) 09/30/2024 Spasm of back muscle s (ICD-10 - M62.830) Resolved 09/30/2024 Local infection of t he skin and subcutaneous tissue, unspecified (ICD-10 - L08.9) Resolved. 08/05/2024 Primary insomnia (ICD-10 - F51.01) 08/05/2024 Stage 3b chronic kid kristine disease (ICD-10 - N18.32) 08/05/2024 Insomnia, unspecifie d type (ICD-10 - G47.00) 08/05/2024 BMI 25.0-25.9,adult (ICD-10 - Z68.25) Plan Of Treatment Pending Test Test Name Order Date H-CBC 07/31/2023 Insurance Providers Payer Name Payer Address Payer Phone Subscriber Number Group Number Insured Name Patient Relationship to Insured Coverage Start Date Coverage End Date [place]IC[place] [address] [place] [id number] Ashleigh Nichole Self - patient is the insured [address] [place] [id number] Ashleigh Nichole Self - patient is the insured Medications Administered Medication Instructions Date of Administration Dosage Notes Dexamethasone 01/12/2015 1 mL Dexamethasone 11/19/2016 1 mL Dexamethasone 04/01/2022 1 mL Medical (General) History Medical History History ICD Code Hypercholestrolemia Allergic Rhinitis RT Distal femur Fracture, 07/2011 Atrophic Vaginitis Hypertension Osteopenia, Dx: 2018 Chronic kidney disease, stage 3b as of , followed by Nephrology shoulder pain Surgical History Surgery Date(Month/Year) LT Ankle 195 Tubal Ligation 1962 Varicose Vein 1970 LT Arm Melanoma Removal 2010 RT Broken Femur Plate Placement 2011 Colonoscopy: Polyps 01/2013 RT Hip Replacement 08/2016 Bilateral Cataract - Bilateral 11/2017 Hospitalization History Reason Date(Month/Year) Broken Femur Plates Placed- [facility] 04 03
--- OUTSIDE RECORDS SUMMARY | 2024-10-03 11:33 | XMS_ITS | Encounter Summary ---
Author Organization Healthcare Address [address] [place] [address] Care Team Providers Care Auto Damage Estimator Name Role Phone Tony Bhatti MD Primary Care Provider + [phone] Reason for Visit * Reason Comments Med Refill Encounter Details Date Type Department Care Team (Late st Contact Info) Description 06/08/[address] [facility] [address] [place] [address], [address] [place] [address] Da Borja, DO [address] [place] [address] Primary osteoarthritis of left shoulder Social History Tobacco Use Types Packs/Day Years [...] encounter Miscellaneous Notes * Telephone Encounter - Greer Panda - 06/08/2023 11:47 AM EDT PCP documented in this encounter Plan of Treatment Upcoming Encounters Date Type Department Care Team (Late st Contact Info) Description 10/07/2024 12:00 PM EDT Office Visit [facility] [address] [facility] [address] [place] [phone] Diamond Farfan, NICOLÁS [address] [facility] [address] [place] [address] 01/06/2025 8:30 AM EDT Office Visit [facility] [address], [address] [place] [address] Silvestre Ross MD [address] [facility] [address] [place] [address] documented as of this encounter Visit Diagnoses Diagnosis Primary osteoarthritis of left shoulder documented in this encounter Additional Health Concerns Assessment Noted Time A fall risk assessment has been complete d for the patient 05/13/2023 8:59 AM EST A Body Mass Index follow-up plan has been documented for the patient 05/13/2023 10:20 AM EST documented as of this encounter Care Teams Auto Damage Estimator Relationship Specialty Start Date End Date Tony Bhatti MD [address] [facility] [address] [place] [address] PCP - General 07/27/20 documented as of this encounter
[2024-10-03 11:36] LABS: Microscopic, Urine URINE MICROSCOPIC (MICROSCOPIC)
[2024-10-03 12:25] LABS: Hematocrit 37.9 % (37.0-47.0); Hemoglobin 11.8 g/dL (12.2-16.2); Mean Corpuscular HGB Conc 31.1 g/dL (31.8-35.4); Mean Corpuscular Hemoglobin 29.8 pg (27.0-31.2); Mean Corpuscular Volume 95.7 fl (81-99); Nucleated Red Blood Cells % 0 %; Platelet Count 214 K/mm3 (142-424); Red Blood Count 3.96 M/mm3 (4.20-5.40); Red Cell Distribution Width-SD 44.1 fL; White Blood Count 9.7 K/mm3 (4.8-10.8)
[2024-10-03 12:32] LABS: Bilirubin,Urine Negative (Negative); Color,Urine YELLOW (Yellow); Glucose,Urine (UA) Negative (Negative); Ketones,Urine Negative (Negative); Leukocyte Esterase,Urine Negative (Negative); PH,Urine 7.5 (5.0-8.5); Protein,Urine Negative (Negative); Specific Gravity, Urine 1.015 (1.005-1.030); Urobilinogen,Urine 0.2 EU/dl (0.2)
[2024-10-03 13:35] LABS: Albumin Level 3.7 g/dl (3.5-5.0); Anion Gap 7.7 mEq/L (5-15); Blood Urea Nitrogen 22 mg/dl (7-17); Calcium 9.6 mg/dl (8.4-10.2); Carbon Dioxide 30 mmol/L (22.0-30.0); Chloride 102 mmol/L (98-107); Creatinine,Serum 1.00 mg/dl (0.52-1.04); Estimated Glomerular Filt Rate 53 ml/min (>60); GFR (African American) 64 ML/MIN (>60); Glucose 73 mg/dl (74-100); Phosphorous 3.4 mg/dl (2.5-4.5); Potassium 4.7 mmoL/L (3.5-5.1); Sodium 135 mmol/L (136-145)
--- NOTE | 2024-10-03 13:58 | XR_ITS ---
FINAL REPORT CLINICAL HISTORY: right hand second finger pain/swelling x1 month FINDINGS: Three views show no evidence of acute displaced fracture or dislocation of the visualized bony architecture. There are moderate diffuse osteoarthritic changes, most pronounced involving the DIP, PIP, and first carpometacarpal joints. Osteoarthritic changes are disproportionately severe involving the second DIP joint. There is no evidence of bony erosion. The bones are osteopenic. IMPRESSION: Osteoarthritic changes, disproportionately severe involving the second DIP joint. Reviewed, Interpreted and Dictated by Sayda Connelly MD Transcribed by Slime Shearer Authenticated and [facility]
[2024-10-03 15:50] LABS: 25-OH Vitamin D, Total 45.6 ng/mL (30-100)
== END 2024-10-03 23:59 | disposition home or self-care (01) ==
PROVIDERS: PCP Family Medicine; Visit Provider Internal Medicine Nephrology
DX: N18.31 Chronic kidney disease, stage 3a (principal); M79.641 Pain in right hand
CPT/HCPCS: 36415; 73130; 80069; 81001; 82306; 82570; 83970; 84156; 85027

== ENCOUNTER 2024-11-03 08:28 | Outpatient (CLI) | payer MEDICARE, SELFPAY ==
--- NOTE | 2024-11-03 08:32 | XR_ITS ---
FINAL REPORT TECHNIQUE: Bone densitometry calculations of the lumbar spine, left hip, and right forearm were obtained. CLINICAL HISTORY: SCREENING COMPARISON: 10/31/2019 FINDINGS: Using L1-4, the bone mineral density of the spine is 1.165 g/cm2, corresponding to T-score of 1.1. Using the left hip, the bone mineral density of the femoral neck is 0.716 g/cm2, corresponding to a T-score of -1.2. Using the right forearm, the bone mineral density of the mid is 4.57 g/cm2, corresponding to a T-score of -2.3. NOTE: T-score: Standard deviation compared with peak bone mass of young adult mean. *Following the recommendations of the International Society of Bone densitometry, classification of hip BMD is based on the lower of two T-scores; total hip or femoral neck. IMPRESSION: Diminished bone mineral density of the right forearm and left hip consistent with osteopenia. Normal bone mineral density of the lumbar spine. Reviewed, Interpreted and Dictated by Eduardo Huerta MD Transcribed by Kia Freedman [facility]henticated and [facility]
== END 2024-11-03 23:59 | disposition home or self-care (01) ==
LOC: RAD 08:29
PROVIDERS: PCP Family Medicine; Visit Provider Family Medicine
DX: M85.831 Other specified disorders of bone density and structure, right forearm (principal); M85.852 Other specified disorders of bone density and structure, left thigh; M81.0 Age-related osteoporosis without current pathological fracture; Z78.0 Asymptomatic menopausal state
CPT/HCPCS: 77080